=== PATIENT | female | born 1965 | race Caucasian/White ===

== ENCOUNTER → 2018-06-20 | Outpatient (CLI) | payer OTHER ==
[2018-06-20 17:31] LABS: ABSOLUTE BASOPHILS # (AUTO) 0.1 10^3/uL (0.0-0.2); ABSOLUTE EOSINOPHILS # (AUTO) 0.1 10^3/uL (0.0-0.6); ABSOLUTE LYMPHOCYTES (AUTO) 2.6 10^3/uL (0.5-4.7); ABSOLUTE MONOCYTES (AUTO) 0.8 10^3/uL (0.1-1.4); ABSOLUTE NEUT (AUTO) 7.7 10^3/uL (1.7-8.2); BASOPHILS % (AUTO) 1.1 % (0-2); EOSINOPHILS % (AUTO) 1.3 % (0-6); HEMATOCRIT 40.3 % (36.0-47.0); HEMOGLOBIN 13.3 g/dL (12.0-15.5); LYMPHOCYTES % (AUTO) 22.9 % (13-45); MEAN CORPUSCULAR HEMOGLOBIN 29.2 pg (27.0-33.4); MEAN CORPUSCULAR HGB CONC 32.9 g/dL (32.0-36.0); MEAN CORPUSCULAR VOLUME 89 fl (80-97); MONOCYTES % (AUTO) 7.1 % (3-13); PLATELET COUNT 263 10^3/uL (150-450); RED BLOOD COUNT 4.54 10^6/uL (3.72-5.28); RED CELL DISTRIBUTION WIDTH 13.3 % (11.5-14.0); SEGMENTED NEUTROPHILS % (AUTO) 67.6 % (42-78); TOTAL CELLS COUNTED % (AUTO) 100 %; WHITE BLOOD COUNT 11.4 10^3/uL (4.0-10.5)
[2018-06-20 18:02] LABS: ALANINE AMINOTRANSFERASE 30 U/L (9-52); ALBUMIN 3.9 g/dL (3.5-5.0); ALKALINE PHOSPHATASE 90 U/L (38-126); ANION GAP 11 (5-19); ASPARTATE AMINO TRANSFERASE 21 U/L (14-36); BILIRUBIN,DIRECT 0.3 mg/dL (0.0-0.4); BILIRUBIN,TOTAL 0.3 mg/dL (0.2-1.3); BLOOD UREA NITROGEN 13 mg/dL (7-20); CALCIUM 9.4 mg/dL (8.4-10.2); CARBON DIOXIDE 28 mmol/L (22-30); CHLORIDE 105 mmol/L (98-107); GLUCOSE 100 mg/dL (75-110); SODIUM 143.8 mmol/L (137-145); TOTAL PROTEIN 7.1 g/dL (6.3-8.2)
== END ==
LOC: CCC 15:54
DX: Z13.9 Encounter for screening, unspecified (principal)
CPT/HCPCS: 36415; 80053; 83036; 84443; 85025

== ENCOUNTER 2018-10-08 07:38 | Emergency (ER) | payer MEDICAID, OTHER ==
[2018-10-08] MEDS ORDERED: IPRATROPIUM/ALBUTEROL 0.5-2.5 MG/3 ML AMPUL NEB ONE (08:19)
[2018-10-08] MEDS ORDERED: ALBUTEROL SULFATE 0.083% NEB 2.5 MG/3 ML AMPUL NEB ONE (08:19)
[2018-10-08] MEDS ORDERED: PREDNISONE 20 MG TABLET PO ONE (08:19)
--- NOTE | 2018-10-08 08:22 | ER Document Report ---
ED General - General Chief Complaint: Productive Cough Stated Complaint: COUGH, CONGESTION Time Seen by Provider: 10/08/18 08:19 TRAVEL OUTSIDE OF THE [place] IN LAST 30 DAYS: No - HPI Notes: Patient is a 53-year-old female that presents to the emergency department for chief complaint of shortness of breath. Patient has a history of COPD. She reports having increased COPD exacerbation over the last few days. She is having a cough with no sputum production. She denies fevers, chills, palpitations and chest pain. She states she feels like her lungs are tight and she is only getting temporary improvement with her home albuterol. She states when this happens she usually gets significant relief from prednisone. She is not currently on any steroid treatments. She used her albuterol inhaler multiple times today. Past Medical History: COPD Past Surgical History: Right chest wall lipoma removal Social History: Occasional tobacco. Occasional alcohol. Denies drug use. Family History: Reviewed and noncontributory for presenting illness Allergies: Reviewed, see documented allergy list. REVIEW OF SYSTEMS: CONSTITUTIONAL : No fever No chills No diaphoresis No recent illness EENT: No vision changes No congestion No sore throat CARDIOVASCULAR: No chest pain No palpitations RESPIRATORY: shortness of breath cough difficulty breathing GASTROINTESTINAL: No abdominal pain No nausea No vomiting No diarrhea GENITOURINARY: No dysuria No hematuria No difficulty urinating MUSCULOSKELETAL: No back pain No leg pain No arm pain SKIN: No rashes No lesions LYMPHATIC: No swollen, enlarged glands. NEUROLOGICAL: No lightheadedness No headache No weakness No paresthesias PSYCHIATRIC: No anxiety No depression PHYSICAL EXAMINATION: Vital signs reviewed, nursing noted reviewed. GENERAL: Well-appearing, well-nourished and in no acute distress. HEAD: Atraumatic, normocephalic. EYES: Eyes appear normal, extraocular movements intact, sclera anicteric, conjunctiva are normal. ENT: nares patent, oropharynx clear without exudates. Moist mucous membranes. NECK: Normal range of motion, supple without lymphadenopathy LUNGS: No accessory muscle use. No respiratory distress. Mild diffuse wheezing. Speaking in full sentences. HEART: Regular rate and rhythm without murmurs ABDOMEN: Soft, nontender, normoactive bowel sounds. No rebound, guarding, or rigidity. No masses appreciated. EXTREMITIES: Nontender, good range of motion, no pitting or edema. NEUROLOGICAL: No focal neurological deficits. Moves all extremities spontaneously Motor and sensory grossly intact on exam. PSYCH: Normal mood, normal affect. SKIN: Warm, Dry, normal turgor, no rashes or lesions noted on exposed skin - Related Data Allergies/Adverse Reactions: Penicillins Allergy (Verified 10/08/18 07:44) Past Medical History - Social History Smoking Status: Current Every Day Smoker Family History: Reviewed & Not Pertinent Physical Exam - Vital signs Vitals: Temp Pulse Resp BP Pulse Ox 97.4 F 83 20 145/71 H 95 10/08/18 07:42 10/08/18 07:42 10/08/18 07:42 10/08/18 07:42 10/08/18 07:42 Course - Re-evaluation Re-evalutation: 10/08/18 08:21 Vitals reviewed. Nursing notes reviewed. Patient in no acute distress and breathing easily on room air. Her oxygen is 95%. She was given prednisone, DuoNeb and albuterol for her COPD exacerbation. 10/08/18 08:57 Patient did have symptomatic relief with breathing treatments. Chest x-ray shows no underlying pneumonia. She is still oxygenating well on room air and is currently at 95%. Patient will be started on steroids at home. She was encouraged to use albuterol inhaler every 4 hours for her COPD exacerbation. She will return to the emergency room for any new or worsening symptoms. Discharged home in stable condition. Chest X-Ray 10/08/18 08:19 IMPRESSION: Bilateral pleural thickening. No acute disease. - Vital Signs Vital signs: Temp Pulse Resp BP Pulse Ox 97.4 F 83 20 145/71 H 95 10/08/18 07:42 10/08/18 07:42 10/08/18 07:42 10/08/18 07:42 10/08/18 07:42 - EKG Interpretation by Me Additional EKG results interpreted by me: 10/08/18 08:33 Inhibited by myself Normal sinus rhythm, rate 81, normal axis, no ectopy, no ST elevation Discharge - Discharge Clinical Impression: COPD exacerbation Condition: Stable Disposition: HOME, SELF-CARE Instructions: Chronic Obstructive Lung Disease ([facility]) Additional Instructions: Please return to the emergency department if you have any worsening, or concern of your symptoms. Please return to the emergency department if you develop chest pain, difficulty breathing, severe abdominal pain, or ongoing vomiting. Please follow-up with your primary care physician in 2-3 days and any other recommended physicians. If prescribed, take all medications as directed. If you have any questions or concerns do not hesitate to return the emergency department for evaluation. Begin taking the prednisone prescription tomorrow, you were already given your daily dose in the emergency room for today. Use your albuterol inhaler 2 puffs every 4 hours for the next 1-2 days and then decrease to 2 puffs every 4 hours as needed. Prescriptions: Benzonatate [Tessalon Perles 100 mg Capsule] 100 mg PO Q8HP PRN #40 capsule PRN Reason: Cough Albuterol Sulfate [Ventolin Hfa 8 gm Mdi (1 Mdi/ER Disp)] 2 puff IH Q4 PRN #2 inhaler PRN Reason: wheezing Inhaler, Assist Devices [Space Chamber Plus] 1 each MC DAILY #1 spacer Prednisone [Deltasone 20 mg Tablet] 2 tab PO DAILY 5 Days tablet Referrals: [facility] [Primary Care Provider] - Follow up in 3-5 days
--- NOTE | 2018-10-08 08:48 | RADIOLOGY REPORT (SQ) ---
EXAM DESCRIPTION: CHEST SINGLE VIEW COMPLETED DATE/TIME: 10/08/2018 8:27 am REASON FOR STUDY: cough COMPARISON: None. EXAM PARAMETERS: NUMBER OF VIEWS: One view. TECHNIQUE: Single frontal radiographic view of the chest acquired. RADIATION DOSE: NA LIMITATIONS: None. FINDINGS: LUNGS AND PLEURA: No acute infiltrates or effusions. MEDIASTINUM AND HILAR STRUCTURES: No masses. Contour normal. HEART AND VASCULAR STRUCTURES: Normal heart and pulmonary vasculature. Bilateral pleural thickening. BONES: No acute findings. HARDWARE: None in the chest. OTHER: Chest leads in place. IMPRESSION: Bilateral pleural thickening. No acute disease. TECHNICAL DOCUMENTATION: JOB ID: [id number] [employer]- All Rights Reserved Reading location - IP/workstation name: [email or web address]
[2018-10-08 09:31] VITALS: BP 158/68
--- NOTE | 2018-10-08 12:45 | EKG REPORT ---
SEVERITY:- NORMAL ECG - SINUS RHYTHM : Confirmed by: Delbert Tirado MD 08-Oct-2018 12:45:27
== END 2018-10-08 09:31 | disposition home or self-care (01) ==
LOC: ER 07:38
DX: J44.1 Chronic obstructive pulmonary disease with (acute) exacerbation (principal); R05 Cough; R06.02 Shortness of breath; F17.200 Nicotine dependence, unspecified, uncomplicated
CPT/HCPCS: 93005; 94640; 99284; 71045; 93010; J7512; J7620

== ENCOUNTER 2018-10-10 14:00 | Emergency (ER) | payer SELFPAY ==
[2018-10-10] MEDS ORDERED: METHYLPREDNISOLONE INJ 125 MG/2 ML SDV IM ONE (15:05)
[2018-10-10] MEDS ORDERED: IPRATROPIUM/ALBUTEROL 0.5-2.5 MG/3 ML AMPUL NEB ONE (15:06)
[2018-10-10] MEDS ORDERED: ALBUTEROL SULFATE 0.083% NEB 2.5 MG/3 ML AMPUL NEB ONE (15:06)
--- NOTE | 2018-10-10 15:13 | ER Document Report ---
ED Respiratory Problem - General Chief Complaint: Breathing Difficulty Stated Complaint: DIFFICULTY BREATHING Time Seen by Provider: 10/10/18 14:49 Mode of Arrival: Ambulatory Information source: Patient Notes: 53 year old female presents to ed for shortness of breath cough wheezing getting worse. She states she got sick on Monday she came to the ED on Monday and she is not getting any better in fact she is getting worse. Patient states she has an albuterol inhaler and a albuterol nebulizer at home but that she did not get any steroids but and she is not getting any better because she needs steroids. Patient thinks she thinks she has pneumonia and would like a chest x- ray. She states she frequently ends up in the hospital with respiratory failure. Alert oriented respiration regular and unlabored speaking with clear voice in full sentences. TRAVEL OUTSIDE OF THE [place] IN LAST 30 DAYS: No - HPI Patient complains to provider of: COPD, Cough, Short of breath Onset: - Monday Duration: Intermittent episodes Initiating Event: URI Quality of pain: Achy Severity: Mild Pain Level: 2 Context: Smoker Short of Breath: Moderate Chest pain/discomfort: Tightness Cough: Productive Sputum amount: Small Sputum color: Green At home treatment: Bronchodilators, Oral steroids Associated symptoms: Congestion, Cough, PND, Runny nose, Sinus pain/pressure, Short of breath Similar symptoms previously: Yes Recently seen / treated by doctor: Yes - Related Data Allergies/Adverse Reactions: Penicillins Allergy (Verified 10/10/18 14:56) Past Medical History - General Information source: Patient - Social History Smoking Status: Current Some Day Smoker Cigarette use (# per day): Yes - 4-5 Smoking Education Provided: Yes - 4 min Frequency of alcohol use: Occasional Drug Abuse: None Lives with: Family Family History: Reviewed & Not Pertinent Patient has suicidal ideation: No Patient has homicidal ideation: No - Past Medical History Cardiac Medical History: Reports: None Pulmonary Medical History: Reports: Hx Asthma, Hx COPD EENT Medical History: Reports: None Neurological Medical History: Reports: None Endocrine Medical History: Reports: None Renal/ Medical History: Reports: None Malignancy Medical History: Reports: None GI Medical History: Reports: None Musculoskeletal Medical History: Reports None Skin Medical History: Reports None Psychiatric Medical History: Reports: None Traumatic Medical History: Reports: None Infectious Medical History: Reports: None Past Surgical History: Reports: Hx Hysterectomy Review of Systems - Review of Systems Notes: REVIEW OF SYSTEMS: CONSTITUTIONAL : Denies fever, chills, or sweats. Denies recent illness. EENT: Denies eye, ear, throat, or mouth pain or symptoms. Denies nasal or sinus congestion or discharge. Denies throat, tongue, or mouth swelling or difficulty swallowing. CARDIOVASCULAR: Denies chest pain. Denies palpitations or racing or irregular heart beat. Denies ankle edema. RESPIRATORY: Denies cough, cold, or chest congestion. Denies shortness of breath, difficulty breathing, or wheezing. GASTROINTESTINAL: Denies abdominal pain or distention. Denies nausea, vomiting , or diarrhea. Denies blood in vomitus, stools, or per rectum. Denies black, tarry stools. Denies constipation. GENITOURINARY: Denies difficulty urinating, painful urination, burning, frequency, blood in urine, or discharge. FEMALE GENITOURINARY: Denies vaginal bleeding, heavy or abnormal periods, irregular periods. Denies vaginal discharge or odor. MUSCULOSKELETAL: Denies back or neck pain or stiffness. Denies joint pain or swelling. SKIN: Denies rash, lesions or sores. HEMATOLOGIC : Denies easy bruising or bleeding. LYMPHATIC: Denies swollen, enlarged glands. NEUROLOGICAL: Denies confusion or altered mental status. Denies passing out or loss of consciousness. Denies dizziness or lightheadedness. Denies headache. Denies weakness or paralysis or loss of use of either side. Denies problems with gait or speech. Denies sensory loss, numbness, or tingling. Denies seizures. PHYSICAL EXAMINATION: GENERAL: Well-appearing, well-nourished and in no acute distress. HEAD: Atraumatic, normocephalic. EYES: Pupils equal round and reactive to light, extraocular movements intact, conjunctiva are normal. ENT: Pale boggy nasal turbinates, postnasal drip without exudates. Moist mucous membranes. NECK: Normal range of motion, supple without lymphadenopathy LUNGS: Patient had bilateral wheezes but no rales or rhonchi. Respirations regular and unlabored. Patient had good air exchange with stable vital signs HEART: Regular rate and rhythm without murmurs ABDOMEN: Soft, nontender, nondistended abdomen. No guarding, no rebound. No masses appreciated. Female : deferred Musculoskeletal: Normal range of motion, no pitting or edema. No cyanosis. NEUROLOGICAL: Cranial nerves grossly intact. Normal speech, normal gait. Normal sensory, motor exams PSYCH: Normal mood, normal affect. SKIN: Warm, Dry, normal turgor, no rashes or lesions noted. PSYCHIATRIC: Denies anxiety or stress. Denies depression, suicidal ideation, or homicidal ideation. ALL OTHER SYSTEMS REVIEWED AND NEGATIVE. Dictation was performed using [employer] voice recognition software Physical Exam - Vital signs Vitals: Temp Pulse Resp BP Pulse Ox 97.6 F 81 16 152/77 H 92 10/10/18 14:25 10/10/18 14:25 10/10/18 14:25 10/10/18 14:25 10/10/18 14:25 Course - Re-evaluation Re-evalutation: 10/11/18 00:07 Patient is assessment consistent with an upper respiratory infection with bronchospasms. She was treated with steroids and albuterol nebulizer with a DuoNeb. She was discharged home to follow-up with her primary doctor. - Vital Signs Vital signs: Temp Pulse Resp BP Pulse Ox 97.5 F 90 18 144/72 H 93 10/10/18 16:28 10/10/18 16:28 10/10/18 16:28 10/10/18 16:28 10/10/18 16:28 - Diagnostic Test Radiology reviewed: Image reviewed, Reports reviewed Discharge - Discharge Clinical Impression: COPD exacerbation Condition: Stable Disposition: HOME, SELF-CARE Instructions: Family Physicians / Practices Additional Instructions: Chronic Obstructive Lung Disease You have chronic obstructive lung disease (COPD). The symptoms come from emphysema (damage to small airways, with trapping of air in large sacks in the lung) and chronic bronchitis (repeated infection and damage to larger airways). The cause is almost always cigarette smoking, although dust exposure, asthma, and infections contribute. You should avoid fumes, dust, and smoke (especially tobacco smoke). Your condition will flare from time to time. There is no cure, but the symptoms can be treated. Bronchodilators (asthma medicine) are often helpful. Antibiotics help when infection is present. When shortness of breath is severe, we may prescribe cortisone medication. If medicine doesn't help enough, we can arrange for you to have an oxygen tank at home. Notify your doctor at once if sputum becomes thick, foul, or bloody, if you develop a fever or chest pain, or if your shortness of breath worsens. STEROID MEDICATION: You have been given an injection of or oral medicine of the cortisone/ steroid class. This medication is used to control inflammation or allergy. Dutch t is usually only given for a short period of time, until the acute process subsides. There are usually no side effects from short-term use of cortisone-like medications. Some persons feel an increased sense of well-being and are not sleepy at bedtime. Long-term use of cortisone medications is best avoided, unless required for a severe condition. If your condition does not remit, or relapses after the course of corticosteroid medication, you should consult your physician. INHALED BRONCHODILATORS: You have received treatment(s) of and/or prescription for an inhaled bronchodilator -- a medication which stimulates the airways in the lung to dilate. This improves the flow of air in asthma, bronchitis, and emphysema. These medicines have some similarity to adrenaline, and can cause similar side effects: shakiness, racing heart, and a sense of nervousness. These side effects decrease with time. Contact your doctor if these side effects are severe. Do not over-use the medicine. Too-frequent use of the inhaler may make it ineffective. Call your doctor if the inhaler is not controlling your symptoms at the prescribed doses. SMOKING: If you smoke, you should stop smoking. The tar and chemicals in cigarette smoke are harmful. Smoking has been shown to cause: emphysema chronic bronchitis lung cancer mouth and throat cancer stomach and pancreas cancer premature aging defects In addition, smoking increases ear and lung infections in children of smokers. USE OF ACETAMINOPHEN (Tylenol): Acetaminophen may be taken for pain relief or fever control. It's much safer than aspirin, offering a wider range of "safe" dosages. It is safe during . Some brand names are Tylenol, Panadol, Datril, Anacin 3, Tempra, and Liquiprin. Acetaminophen can be repeated every four hours. The following are maximum recommended dosages: WEIGHT Dose Drops Elixir Chewable( 80mg) (LBS.) drprs=droppers tsp=teaspoon 6 40 mg 0.4 ml (1/2) 6-11 80 mg 0.8 ml (full) tsp 1 tab 12-16 120 mg 1 1/2 drprs 3/4 tsp 1 1/2 tabs 17-23 160 mg 2 drprs 1 tsp 2 tabs 24-30 240 mg 3 drprs 1 1/2 tsp 3 tabs 30-35 320 mg 2 tsp 4 tabs 36-41 360 mg 2 1/4 tsp 4 1/2 tabs 42-47 400 mg 2 1/2 tsp 5 tabs 48-53 480 mg 3 tsp 6 tabs 54-59 520 mg 3 1/4 tsp 6 1/2 tabs 60-64 560 mg 3 1/2 tsp 7 tabs 65-70 600 mg 3 3/4 tsp 7 1/2 tabs 71-76 640 mg 4 tsp 8 tabs 77-82 720 mg 4 1/2 tsp 9 tabs 83-88 800 mg 5 tsp 10 tabs >89 pounds or adults 650 mg to 900 mg Acetaminophen can be repeated every four hours. Maximum dose not to exceed 4000 mg a day. These maximum recommended dosages are slightly higher than the dosages written on the product container, but these dosages are very safe and below the toxic dosage for acetaminophen. FOLLOW-UP CARE: If you have been referred to a physician for follow-up care, call the physician s office for an appointment as you were instructed or within the next two days. If you experience worsening or a significant change in your symptoms, notify the physician immediately or return to the Emergency Department at any time for re-evaluation. Prescriptions: Prednisone [Deltasone 20 mg Tablet] 1 tab PO DAILY 3 Days tablet Forms: Elevated Blood Pressure, Smoking Cessation Education, Return to Work
--- NOTE | 2018-10-10 15:41 | RADIOLOGY REPORT (SQ) ---
EXAM DESCRIPTION: CHEST 2 VIEWS COMPLETED DATE/TIME: 10/10/2018 3:29 pm REASON FOR STUDY: cough congestion wheezing COMPARISON: AP chest 10/08/2018 EXAM PARAMETERS: NUMBER OF VIEWS: two views TECHNIQUE: Digital Frontal and Lateral radiographic views of the chest acquired. RADIATION DOSE: NA LIMITATIONS: none FINDINGS: LUNGS AND PLEURA: No opacities, masses or pneumothorax. No pleural effusion. MEDIASTINUM AND HILAR STRUCTURES: No masses or contour abnormalities. HEART AND VASCULAR STRUCTURES: Heart normal size. No evidence for failure. BONES: No acute findings. HARDWARE: None in the chest. OTHER: No other significant finding. IMPRESSION: NO ACUTE RADIOGRAPHIC FINDING IN THE CHEST. TECHNICAL DOCUMENTATION: JOB ID: [id number] [email or web address]- All Rights Reserved Reading location - IP/workstation name: [email or web address]
[2018-10-10 16:32] VITALS: BP 144/72
== END 2018-10-10 16:32 | disposition home or self-care (01) ==
LOC: ER 14:00
DX: J44.1 Chronic obstructive pulmonary disease with (acute) exacerbation (principal); R06.02 Shortness of breath; R05 Cough; R06.2 Wheezing; R09.82 Postnasal drip; J34.89 Other specified disorders of nose and nasal sinuses; R09.89 Other specified symptoms and signs involving the circulatory and respiratory systems; F17.210 Nicotine dependence, cigarettes, uncomplicated; Z71.6 Tobacco abuse counseling; Z79.899 Other long term (current) drug therapy; Z88.0 Allergy status to penicillin
CPT/HCPCS: 99406; 94640 ×2; 99285; 96372; 71046; J2930; J7620

== ENCOUNTER 2018-11-10 13:25 | Emergency (ER) | payer OTHER ==
--- NOTE | 2018-11-10 15:21 | ER Document Report ---
ED Medical Screen (RME) - General Chief Complaint: Leg Pain Stated Complaint: LEG PAIN Time Seen by Provider: 11/10/18 15:08 Mode of Arrival: Ambulatory Information source: Patient Notes: 53-year-old female presents to ED for complaint of pain to the left lower extremity. She states that the pain began on Alexandra Nathalia. She states she was moving things around and she had some pain in the front of her leg. She states that started to get better and then she started having pain in the posterior thigh back of her leg and calf. She states she has multiple family members have had blood clots and she is concerned that she has a blood clot. Patient does not herself have a history of blood clots but she has smoked until a month ago. Back of her leg is very tender to palpation. She does have varicose veins to the back of her leg. Patient is alert oriented respirations regular and unl abored speaking in full sentences. I have greeted and performed a rapid initial assessment of this patient. A comprehensive ED assessment and evaluation of the patient, analysis of test results and completion of medical decision making process will be conducted by an additional ED providers. TRAVEL OUTSIDE OF THE [place] IN LAST 30 DAYS: No - Related Data Allergies/Adverse Reactions: Penicillins Allergy (Verified 10/10/18 14:56) Past Medical History Pulmonary Medical History: Reports: Hx Asthma, Hx COPD Renal/ Medical History: Denies: Hx Peritoneal Dialysis Past Surgical History: Reports: Hx Hysterectomy Physical Exam - Vital signs Vitals: Temp Pulse Resp BP Pulse Ox 98.6 F 81 20 146/69 H 92 11/10/18 14:10 11/10/18 14:10 11/10/18 14:10 11/10/18 14:10 11/10/18 14:10 Course - Vital Signs Vital signs: Temp Pulse Resp BP Pulse Ox 97.8 F 88 16 145/76 H 96 11/10/18 20:53 11/10/18 20:53 11/10/18 20:53 11/10/18 20:53 11/10/18 20:53 - Laboratory Result Diagrams: 11/10/18 19:30 11/10/18 19:30 Laboratory results interpreted by me: 11/10/18 19:30 WBC 12.0 H Doctor's Discharge - Discharge Clinical Impression: Knee pain, acute, Calf pain Condition: Good Disposition: HOME, SELF-CARE Instructions: Myalagia (Muscle Pain) ([facility]), Osteoarthritis ([facility]) Additional Instructions: Your ultrasound today did not show any evidence of a clot in your leg. Your blood work does not show any evidence of a clot in your lung. If you continue to have calf pain return to the emergency department in 5-7 days for repeat ultrasound. Prescriptions: Ibuprofen [Motrin 600 Mg Tablet] 600 mg PO TID #15 tablet Oxycodone HCl/Acetaminophen [Percocet 5-325 mg Tablet] 1 tab PO Q6H PRN #10 tablet PRN Reason: Referrals: JAKOB EDWARDS MD [COMMUNITY BASED STAFF] - Follow up as needed MARCO A DIAZ MD [ACTIVE STAFF] - Follow up as needed
--- NOTE | 2018-11-10 15:55 | RADIOLOGY REPORT (SQ) ---
EXAM DESCRIPTION: KNEE LEFT 4 VIEW COMPLETED DATE/TIME: 11/10/2018 3:47 pm REASON FOR STUDY: pain and possible injury COMPARISON: None. NUMBER OF VIEWS: Four views. TECHNIQUE: AP, lateral, and both oblique radiographic images acquired of the left knee. LIMITATIONS: None. FINDINGS: MINERALIZATION: Normal. BONES: No acute fracture or dislocation. No worrisome bone lesions. JOINT: No effusion. SOFT TISSUES: No soft tissue swelling. No radio-opaque foreign body. OTHER: No other significant finding. IMPRESSION: NEGATIVE STUDY OF THE LEFT KNEE. NO RADIOGRAPHIC EVIDENCE OF ACUTE INJURY. TECHNICAL DOCUMENTATION: JOB ID: [id number] [employer]- All Rights Reserved Reading location - IP/workstation name: [email or web address]
--- NOTE | 2018-11-10 16:24 | RADIOLOGY REPORT (SQ) ---
EXAM DESCRIPTION: VENOUS UNILATERAL LOWER COMPLETED DATE/TIME: 11/10/2018 4:15 pm REASON FOR STUDY: pain in back of left leg COMPARISON: None. TECHNIQUE: Dynamic and static green scale and color images acquired of the left leg venous system. Se lected spectral images acquired with additional compression and augmentation maneuvers. The contralat eral common femoral vein and saphenofemoral junction were also imaged. Images stored on PACS. LIMITATIONS: None. FINDINGS: COMMON FEMORAL: Normal phasicity, compression and augmentation. No visualized echogenic ma terial on green scale. No defects on color images. FEMORAL: Normal compression and augmentation. No visualized echogenic material on green scale. No defe cts on color images. POPLITEAL: Normal compression, augmentation. No visualized echogenic material on green scale. No defec ts on color images. CALF VESSELS: Normal compression, augmentation. No visualized echogenic material on green scale. No de fects on color images. GSV and SSV: Normal compression, augmentation. No visualized echogenic material on green scale. No def ects on color images. ANY DEEP VENOUS INSUFFICIENCY: Not evaluated. ANY EVIDENCE OF POPLITEAL CYST: No. OTHER: No other significant finding. CONTRALATERAL COMMON FEMORAL VEIN AND SAPHENOFEMORAL JUNCTION: Normal phasicity, compression and augmentation. No visualized echogenic material on green scale. No de fects on color images. IMPRESSION: NO EVIDENCE DVT OR SVT IN THE LEFT LEG. TECHNICAL DOCUMENTATION: JOB ID: [id number] [employer]- All Rights Reserved Reading location - IP/workstation name: [email or web address]
[2018-11-10] MEDS ORDERED: IBUPROFEN 800 MG TABLET PO ONE (16:31)
--- NOTE | 2018-11-10 17:12 | ER Document Report ---
ED General - General Mode of Arrival: Ambulatory Information source: Patient TRAVEL OUTSIDE OF THE [place] IN LAST 30 DAYS: No - HPI Onset: Other - 5 days Onset/Duration: Sudden, Constant Quality of pain: Achy Associated symptoms: None Exacerbated by: Movement, Walking Relieved by: Denies Similar symptoms previously: No Recently seen / treated by doctor: No <GOPI VAUGHN - Last Filed: 11/10/18 17:35> <CHERIE NOEL - Last Filed: 11/10/18 23:30> - General Chief Complaint: Leg Pain Stated Complaint: LEG PAIN Time Seen by Provider: 11/10/18 15:08 Notes: 53-year-old female presents the emergency department with complaints of left lower extremity pain. Patient states that this began on and has been constant since then. Patient states that she did hit the medial aspect of the knee on 11/05 and thought that her knee might of been bruised. She was having pain when she walked due to flexion/extension of the knee. Patient states that over the last couple of days the pain has been moving into the posterior leg and calf. She tried taking an old muscle relaxer without any relief of symptoms. Pain is worse with movement. No alleviating factors. She states that her family members have had DVTs in the past. Patient is concerned that she does have a DVT. Denies recent travel, recent surgery, history of DVT in herself, history of hormone use, history of malignancy. Patient denies any difficulty breathing or chest pain. (GOPI VAUGHN) - Related Data Allergies/Adverse Reactions: Penicillins Allergy (Verified 10/10/18 14:56) Past Medical History - General Information source: Patient - Social History Smoking Status: Never Smoker Chew tobacco use (# tins/day): No Frequency of alcohol use: Social Drug Abuse: None Family History: Reviewed & Not Pertinent Patient has suicidal ideation: No Patient has homicidal ideation: No Pulmonary Medical History: Reports: Hx Asthma, Hx COPD Renal/ Medical History: Denies: Hx Peritoneal Dialysis Past Surgical History: Reports: Hx Hysterectomy <GOPI VAUGHN - Last Filed: 11/10/18 17:35> Review of Systems - Review of Systems Constitutional: No symptoms reported EENT: No symptoms reported Cardiovascular: No symptoms reported Respiratory: No symptoms reported Gastrointestinal: No symptoms reported Genitourinary: No symptoms reported Musculoskeletal: Joint pain, Muscle pain Skin: No symptoms reported Hematologic/Lymphatic: No symptoms reported Neurological/Psychological: No symptoms reported -: Yes All other systems reviewed and negative <GOPI VAUGHN - Last Filed: 11/10/18 17:35> Physical Exam <GOPI VAUGHN - Last Filed: 11/10/18 17:35> - Vital signs Vitals: Temp Pulse Resp BP Pulse Ox 98.6 F 81 20 146/69 H 92 11/10/18 14:10 11/10/18 14:10 11/10/18 14:10 11/10/18 14:10 11/10/18 14:10 - Notes Notes: PHYSICAL EXAMINATION: GENERAL: Well-appearing, well-nourished and in no acute distress. HEAD: Atraumatic, normocephalic. EYES: Pupils equal round and reactive to light, extraocular movements intact, conjunctiva are normal. ENT: Nares patent, oropharynx clear without exudates. Moist mucous membranes. NECK: Normal range of motion, supple without lymphadenopathy LUNGS: Breath sounds clear to auscultation bilaterally and equal. No wheezes rales or rhonchi. HEART: Regular rate and rhythm without murmurs ABDOMEN: Soft, nontender, nondistended abdomen. No guarding, no rebound. No masses appreciated. Female : deferred Musculoskeletal: Normal range of motion, no pitting or edema. No cyanosis. 2+ DP/PT pulses. Left calf tenderness to palpation. No tibia/fibula tenderness to palpation. Left medial knee tenderness to palpation. NEUROLOGICAL: Cranial nerves grossly intact. Normal speech, normal gait. Normal sensory, motor exams PSYCH: Normal mood, normal affect. SKIN: Warm, Dry, normal turgor, no rashes or lesions noted. (GOPI VAUGHN) Course <GOPI VAUGHN - Last Filed: 11/10/18 17:35> - Laboratory Result Diagrams: 11/10/18 19:30 11/10/18 19:30 - Diagnostic Test Radiology reviewed: Image reviewed, Reports reviewed <CHERIE NOEL - Last Filed: 11/10/18 23:30> - Re-evaluation Re-evalutation: 11/10/18 17:08 Venous Doppler is negative. X-ray of the knee is negative. Patient has left calf tenderness to palpation. No anterior leg tenderness to palpation. Patient has 2+ dorsalis pedis and posterior tibialis pulses. Normal color to the foot. Able to flex/extend knee in the room. Able to ambulate despite the pain. I will place the knee in an immobilizer as the patient is complaining of pain to the medial aspect of the knee. I will provide follow up with orthopedic surgery and a primary care physician. I told the patient to take [id number] medication as needed for pain, to follow-up with the primary care physician this week, and to return to the emergency department for worsening symptoms. 11/10/18 17:22 Upon reviewing the nursing notes, it was stated the patient has been having shortness of breath intermittently since this happened. I went and reevaluated the patient. She states that she is not currently feeling short of breath but this has happened over the last couple of days. Patient states that she thought it was just her anxiety. A d-dimer and labs were ordered. Patient denies chest pain. 11/10/18 17:35 EKG: Ventricular rate 75, KS interval 140, QRS duration 78, QTc 438, sinus rhythm, no ST segment elevation. (GOPI VAUGHN) 11/10/18 23:28 Patient signed out to me by Dr. Marie with d-dimer pending. D-dimer within normal limits. Patient reevaluated and still complaining of significant calf pain. Ultrasound reviewed and negative for DVT. Kyaw wrap was applied to the calf and knee for comfort. Patient advised to use NSAIDs for pain. Patient advised that if she continues to have pain that she should return in 5-7 days for repeat ultrasound. Patient was discharged home in stable condition with recommendation to follow-up with her primary care physician. 11/10/18 23:28 After speaking with the patient for over 10 minutes patient asked to see me back in the room and stated that her family believes that this is gout. Patient's exam is not consistent with gout! (CHERIE NOEL) - Vital Signs Vital signs: Temp Pulse Resp BP Pulse Ox 97.8 F 88 16 145/76 H 96 11/10/18 20:53 11/10/18 20:53 11/10/18 20:53 11/10/18 20:53 11/10/18 20:53 - Laboratory Laboratory results interpreted by me: 11/10/18 19:30 WBC 12.0 H Discharge <GOPI VAUGHN A - Last Filed: 11/10/18 17:35> <BERTSUNITHA - Last Filed: 11/10/18 23:30> - Discharge Clinical Impression: Knee pain, acute Qualifiers: Laterality: left Qualified Code(s): M25.562 - Pain in left knee Calf pain Qualifiers: Laterality: left Qualified Code(s): M79.662 - Pain in left lower leg Condition: Good Disposition: HOME, SELF-CARE Instructions: Myalagia (Muscle Pain) ([facility]), Osteoarthritis ([facility]) Additional Instructions: Your ultrasound today did not show any evidence of a clot in your leg. Your blood work does not show any evidence of a clot in your lung. If you continue to have calf pain return to the emergency department in 5-7 days for repeat ultrasound. Prescriptions: Ibuprofen [Motrin 600 Mg Tablet] 600 mg PO TID #15 tablet Oxycodone HCl/Acetaminophen [Percocet 5-325 mg Tablet] 1 tab PO Q6H PRN #10 tablet PRN Reason: Forms: Elevated Blood Pressure Referrals: MARCO A DIAZ MD [ACTIVE STAFF] - Follow up as needed JAKOB EDWARDS MD [COMMUNITY BASED STAFF] - Follow up as needed
[2018-11-10 19:48] LABS: ABSOLUTE BASOPHILS # (AUTO) 0.1 10^3/uL (0.0-0.2); ABSOLUTE EOSINOPHILS # (AUTO) 0.3 10^3/uL (0.0-0.6); ABSOLUTE LYMPHOCYTES (AUTO) 2.5 10^3/uL (0.5-4.7); ABSOLUTE NEUT (AUTO) 8.1 10^3/uL (1.7-8.2); BASOPHILS % (AUTO) 1.1 % (0-2); EOSINOPHILS % (AUTO) 2.2 % (0-6); HEMATOCRIT 37.6 % (36.0-47.0); HEMOGLOBIN 12.8 g/dL (12.0-15.5); LYMPHOCYTES % (AUTO) 20.5 % (13-45); MEAN CORPUSCULAR HEMOGLOBIN 29.6 pg (27.0-33.4); MEAN CORPUSCULAR HGB CONC 34.2 g/dL (32.0-36.0); MEAN CORPUSCULAR VOLUME 87 fl (80-97); MONOCYTES % (AUTO) 8.6 % (3-13); PLATELET COUNT 225 10^3/uL (150-450); RED BLOOD COUNT 4.33 10^6/uL (3.72-5.28); RED CELL DISTRIBUTION WIDTH 13.1 % (11.5-14.0); SEGMENTED NEUTROPHILS % (AUTO) 67.6 % (42-78); TOTAL CELLS COUNTED % (AUTO) 100 %
[2018-11-10 20:05] LABS: ALANINE AMINOTRANSFERASE 24 U/L (9-52); ALBUMIN 3.6 g/dL (3.5-5.0); ALKALINE PHOSPHATASE 84 U/L (38-126); ANION GAP 7 (5-19); ASPARTATE AMINO TRANSFERASE 23 U/L (14-36); BILIRUBIN,DIRECT 0.2 mg/dL (0.0-0.4); BILIRUBIN,TOTAL 0.6 mg/dL (0.2-1.3); BLOOD UREA NITROGEN 13 mg/dL (7-20); CALCIUM 9.2 mg/dL (8.4-10.2); CARBON DIOXIDE 29 mmol/L (22-30); CHLORIDE 104 mmol/L (98-107); GLUCOSE 85 mg/dL (75-110); POTASSIUM 4.6 mmol/L (3.6-5.0); SODIUM 140.2 mmol/L (137-145); TOTAL PROTEIN 6.4 g/dL (6.3-8.2)
--- NOTE | 2018-11-10 20:28 | EKG REPORT ---
SEVERITY:- NORMAL ECG - SINUS RHYTHM : Confirmed by: Gwen Dejesus 10-Nov-2018 20:27:36
[2018-11-10 20:54] VITALS: BP 145/76
== END 2018-11-10 20:54 | disposition home or self-care (01) ==
LOC: ER 13:25
DX: M79.662 Pain in left lower leg (principal); M25.562 Pain in left knee; Z79.899 Other long term (current) drug therapy; J44.9 Chronic obstructive pulmonary disease, unspecified
CPT/HCPCS: 93005; 99284; 36415; 85025; 80053; 85379; 93971; 73564; 93010; L1830

== ENCOUNTER 2019-01-16 14:04 | Emergency (ER) | payer OTHER ==
[2019-01-16] MEDS ORDERED: IPRATROPIUM/ALBUTEROL 0.5-2.5 MG/3 ML AMPUL NEB ONE ×2 (16:08→16:16)
--- NOTE | 2019-01-16 16:17 | ER Document Report ---
HPI - HPI Time Seen by Provider: 01/16/19 16:00 Pain Level: 2 Notes: Patient is a 53-year-old female who presents to the emergency department with complaints of productive cough, congestion, fever and chills. Patient reports her symptoms have been going on for approximately 12-14 days. She reports history of COPD, pneumonia and bronchitis. She reports that she is a nonsmoker. - CONSTITUTIONAL Constitutional: REPORTS: Fever - EENT EENT: REPORTS: Sore Throat - NEURO Neurology: REPORTS: Headache - RESPIRATORY Respiratory: REPORTS: Trouble Breathing, Coughing - REPRODUCTIVE Reproductive: DENIES: : Past Medical History - General Information source: Patient - Social History Smoking Status: Never Smoker Chew tobacco use (# tins/day): No Frequency of alcohol use: Occasional Drug Abuse: None Family History: Reviewed & Not Pertinent Patient has suicidal ideation: No Patient has homicidal ideation: No Pulmonary Medical History: Reports: Hx Asthma, Hx COPD Renal/ Medical History: Denies: Hx Peritoneal Dialysis Past Surgical History: Reports: Hx Hysterectomy Vertical Provider Document - CONSTITUTIONAL Notes: PHYSICAL EXAMINATION: GENERAL: Well-appearing, well-nourished and in no acute distress. HEAD: Atraumatic, normocephalic. EYES: Pupils equal round extraocular movements intact, conjunctiva are normal. ENT: Nares patent with clear rhinorrhea. NECK: Normal range of motion LUNGS: No respiratory distress, bilateral expiratory wheezes noted. Mildly increased work of breathing. Musculoskeletal: Normal range of motion NEUROLOGICAL: Normal speech, normal gait. PSYCH: Normal mood, normal affect. SKIN: Warm, Dry, normal turgor, no rashes or lesions noted. - INFECTION CONTROL TRAVEL OUTSIDE OF THE [place] IN LAST 30 DAYS: No Course - Re-evaluation Re-evalutation: Possible infiltrate in the left lower lobe on chest x-ray. Patient's lung sounds improved significantly after breathing treatments here in the emergency department. O2 saturations remained 98-100% after breathing treatments, no tachypnea noted. Patient will be started on doxycycline. - Vital Signs Vital signs: Temp Pulse Resp BP Pulse Ox 97.9 F 99 18 147/79 H 93 01/16/19 15:50 01/16/19 15:50 01/16/19 15:50 01/16/19 15:50 01/16/19 15:50 Discharge - Discharge Clinical Impression: Pneumonia Qualifiers: Pneumonia type: due to unspecified organism Laterality: left Lung location: lower lobe of lung Qualified Code(s): J18.1 - Lobar pneumonia, unspecified organism Condition: Stable Disposition: HOME, SELF-CARE Additional Instructions: PNEUMONIA: Your examination indicates that you have pneumonia. This is an infection of the lung tissue, usually caused by bacteria or a virus. Symptoms include cough, fever, shaking chills, chest pain, shortness of breath, and coughing up bloody sputum. Treatment for bacterial pneumonia includes rest, antibiotics for 10 to 14 days, increasing your clear liquid intake, a cool mist humidifier at your bedside, and fever medication. Often, a repeat chest X-ray is performed in a few weeks--even if you feel better--to ascertain whether the infection has completely resolved and no underlying lung problem is present. You should call the physician if you develop persistent vomiting, high fever that does not respond to fever medication, increasing shortness of breath, confusion, or lethargy. Also, failure to improve within two to three days is an indication for re-examination. ANTIBIOTIC THERAPY: You have been given an antibiotic prescription. It's important that you take all the medication, unless instructed otherwise by your physician. Failure to complete the entire course can result in relapse of your condition. Common side effects of antibiotics include nausea, intestinal cramping, or diarrhea. Women may develop vaginal yeast infections, and babies can get yeast (thrush) in the mouth following the use of antibiotics. Contact your physician if you develop significant side effects from this medication. Allergy to this antibiotic can result in hives, wheezing, faintness, or itching. If symptoms of allergy occur, stop the medication and call the doctor. DOXYCYCLINE: Doxycycline (Vibramycin, Doryx) is an antibiotic of the tetracycline family. This type of drug is useful for infections of the respiratory tract and genital tract, and is sometimes used for intestinal infections. Unlike most tetracyclines, doxycycline can be taken with food. It is longer acting, and (usually) less prone to side effects than regular tetracycline. Tetracycline antibiotics can stain immature teeth and SHOULD NOT BE TAKEN BY CHILDREN, NURSING MOTHERS, OR WOMEN. Tetracyclines can make you more prone to sunburn. Abdominal cramping, nausea, and diarrhea are occasional side effects. Women may experience vaginal yeast infections. Call the doctor at once if you develop hives, itching, shortness of breath, or lightheadedness. USE OF ACETAMINOPHEN (Tylenol): Acetaminophen may be taken for pain relief or fever control. It's much safe r than aspirin, offering a wider range of "safe" dosages. It is safe during . Some brand names are Tylenol, Panadol, Datril, Anacin 3, Tempra, and Liquiprin. Acetaminophen can be repeated every four hours. The following are maximum recommended dosages: WEIGHT Dose Drops Elixir Chewable(80mg) (LBS.) drprs=droppers tsp=teaspoon >89 pounds or adults 650 mg to 900 mg Acetaminophen can be repeated every four hours. Maximum dose not to exceed 4000 mg a day. These maximum recommended dosages are slightly higher than the dosages written on the product container, but these dosages are very safe and below the toxic dosage for acetaminophen. Ibuprofen Ibuprofen is an excellent, safe drug for pain control. In addition, it has potent antiinflammatory effects which are beneficial, especially in the treatment of injuries, arthritis, or tendonitis. It's best to take ibuprofen with food. Persons with ulcer disease or allergy to aspirin should notify their physician of this before taking ibuprofen. Take the medication exactly as prescribed. Don't take additional doses unl ess instructed to do so by your doctor. If you develop wheezing, shortness of breath, hives, faintness, stomach pain, vomiting, or dark black stools, return for re-evaluation at once. FOLLOW-UP CARE: If you have been referred to a physician for follow-up care, call the physicians office for an appointment as you were instructed or within the next two days. If you experience worsening or a significant change in your symptoms, notify the physician immediately or return to the Emergency Department at any time for re-evaluation. Please take antibiotics as prescribed, you were given a first dose here in the emergency department tonight take her next dose tomorrow morning. Use the albuterol inhaler 1-2 puffs every 4 hours as needed for shortness of breath or wheezing. Take the prednisone prescription and have it filled in 3 days if you are still experiencing symptoms. Follow-up with your primary care provider in 3-5 days for follow-up, return to the emergency department sooner with any new or worsening symptoms. Drink plenty of fluids. Prescriptions: Doxycycline Hyclate 100 mg PO BID #14 capsule Prednisone [Deltasone 20 mg Tablet] 3 tab PO DAILY 5 Days #15 tablet
[2019-01-16] MEDS ORDERED: DEXAMETHASONE SOD PHOS INJ 10 MG/1 ML VIAL IM ONE (16:20)
[2019-01-16] MEDS ORDERED: ALBUTEROL SULFATE 0.083% NEB 2.5 MG/3 ML AMPUL NEB ONE (16:20)
--- NOTE | 2019-01-16 17:04 | RADIOLOGY REPORT (SQ) ---
EXAM DESCRIPTION: CHEST 2 VIEWS COMPLETED DATE/TIME: 01/16/2019 4:55 pm REASON FOR STUDY: chest xray COMPARISON: None. EXAM PARAMETERS: NUMBER OF VIEWS: two views TECHNIQUE: Digital Frontal and Lateral radiographic views of the chest acquired. RADIATION DOSE: NA LIMITATIONS: none FINDINGS: LUNGS AND PLEURA: There is some ill-defined opacification behind the heart on the left. T he left hemidiaphragm remains well-defined. MEDIASTINUM AND HILAR STRUCTURES: No masses or contour abnormalities. HEART AND VASCULAR STRUCTURES: Heart normal size. No evidence for failure. BONES: No acute findings. HARDWARE: None in the chest. OTHER: No other significant finding. IMPRESSION: Cannot exclude limited infiltrate in the left lower lobe. TECHNICAL DOCUMENTATION: JOB ID: [id number] [employer]- All Rights Reserved Reading location - IP/workstation name: [email or web address]
[2019-01-16 17:52] VITALS: BP 154/65
[2019-01-16] MEDS ORDERED: ALBUTEROL SULFATE HFA (90 MCG/PUFF) 8 GM MDI (1 MDI/ER DISP) IH ONE (17:58)
[2019-01-16] MEDS ORDERED: DOXYCYCLINE HYCLATE 100 MG TABLET PO ONE (17:59)
== END 2019-01-16 18:08 | disposition home or self-care (01) ==
LOC: ER 14:04
DX: J18.1 Lobar pneumonia, unspecified organism (principal); J44.0 Chronic obstructive pulmonary disease with (acute) lower respiratory infection; R05 Cough; R50.9 Fever, unspecified; R51 Headache
CPT/HCPCS: 94640 ×2; 99283; 96372; 71046; J1100; J3490; J7620

== ENCOUNTER 2019-03-01 13:40 | Emergency (ER) | payer OTHER ==
--- NOTE | 2019-03-01 14:22 | ER Document Report ---
ED Medical Screen (RME) - General Chief Complaint: Shortness Of Breath Stated Complaint: DIFFICULTY BREATHING Time Seen by Provider: 03/01/19 14:17 Mode of Arrival: Ambulatory Information source: Patient Notes: 53-year-old female presented to ED for cough cold congestion and pain between her shoulder blades with no fever. She states she does have a history of COPD and was diagnosed with pneumonia a month ago. She states she feels like she is been getting pneumonia every month since spring time. Patient is alert oriented respirations regular and unlabored. She does have rhonchi in her lungs. CBC chemistry and chest x-ray were ordered. She states she is a former smoker but no longer smokes. I have greeted and performed a rapid initial assessment of this patient. A comprehensive ED assessment and evaluation of the patient, analysis of test results and completion of medical decision making process will be conducted by an additional ED providers. TRAVEL OUTSIDE OF THE [place] IN LAST 30 DAYS: No - Related Data Allergies/Adverse Reactions: Penicillins Allergy (Verified 03/01/19 13:43) Past Medical History - Social History Frequency of alcohol use: Occasional Drug Abuse: None Pulmonary Medical History: Reports: Hx Asthma, Hx COPD Renal/ Medical History: Denies: Hx Peritoneal Dialysis Past Surgical History: Reports: Hx Hysterectomy Physical Exam - Vital signs Vitals: Temp Pulse Resp BP Pulse Ox 98.1 F 87 18 146/61 H 87 L 03/01/19 13:48 03/01/19 13:48 03/01/19 13:48 03/01/19 13:48 03/01/19 13:48 Course - Vital Signs Vital signs: Temp Pulse Resp BP Pulse Ox 98.1 F 87 18 146/61 H 87 L 03/01/19 13:48 03/01/19 13:48 03/01/19 13:48 03/01/19 13:48 03/01/19 13:48
[2019-03-01] MEDS ORDERED: NORMAL SALINE 1000 ML 1,000 ML IV ONE (14:45)
--- NOTE | 2019-03-01 14:46 | RADIOLOGY REPORT (SQ) ---
EXAM DESCRIPTION: CHEST 2 VIEWS COMPLETED DATE/TIME: 03/01/2019 2:37 pm REASON FOR STUDY: pain in lungs feel like her pneumonia, hx copd COMPARISON: 01/16/2019 EXAM PARAMETERS: NUMBER OF VIEWS: two views TECHNIQUE: Digital Frontal and Lateral radiographic views of the chest acquired. RADIATION DOSE: NA LIMITATIONS: none FINDINGS: LUNGS AND PLEURA: No opacities, masses or pneumothorax. No pleural effusion. MEDIASTINUM AND HILAR STRUCTURES: No masses or contour abnormalities. HEART AND VASCULAR STRUCTURES: Heart normal size. No evidence for failure. BONES: No acute findings. HARDWARE: None in the chest. OTHER: No other significant finding. IMPRESSION: No acute abnormality of the lungs. No focal airspace opacity. Previously queried left lower lobe opacity is resolved. TECHNICAL DOCUMENTATION: JOB ID: [id number] [employer]- All Rights Reserved Reading location - IP/workstation name: [email or web address]
[2019-03-01] MEDS ORDERED: IPRATROPIUM/ALBUTEROL 0.5-2.5 MG/3 ML AMPUL NEB ONE (14:50)
[2019-03-01] MEDS ORDERED: MAGNESIUM SULFATE/D5W 1 GM/100 ML RTUPB IV ONE (14:50)
[2019-03-01 15:13] LABS: HEMATOCRIT 39.9 % (36.0-47.0); HEMOGLOBIN 13.5 g/dL (12.0-15.5); MEAN CORPUSCULAR HEMOGLOBIN 29.5 pg (27.0-33.4); MEAN CORPUSCULAR HGB CONC 33.9 g/dL (32.0-36.0); MEAN CORPUSCULAR VOLUME 87 fl (80-97); PLATELET COUNT 252 10^3/uL (150-450); RED BLOOD COUNT 4.58 10^6/uL (3.72-5.28); WHITE BLOOD COUNT 10.5 10^3/uL (4.0-10.5)
[2019-03-01 15:25] LABS: ALANINE AMINOTRANSFERASE 28 U/L (9-52); ALKALINE PHOSPHATASE 98 U/L (38-126); ANION GAP 8 (5-19); ASPARTATE AMINO TRANSFERASE 17 U/L (14-36); BILIRUBIN,DIRECT 0.2 mg/dL (0.0-0.4); BILIRUBIN,TOTAL 0.5 mg/dL (0.2-1.3); BLOOD UREA NITROGEN 13 mg/dL (7-20); CALCIUM 9.7 mg/dL (8.4-10.2); CARBON DIOXIDE 30 mmol/L (22-30); CHLORIDE 104 mmol/L (98-107); GLUCOSE 102 mg/dL (75-110); LIPASE 54.4 U/L (23-300); POTASSIUM 4.5 mmol/L (3.6-5.0); SODIUM 141.9 mmol/L (137-145); TOTAL PROTEIN 7.2 g/dL (6.3-8.2)
[2019-03-01 15:46] LABS: ABSOLUTE LYMPHOCYTES# (MANUAL) 1.8 10^3/uL (0.5-4.7); ABSOLUTE MONOCYTES # (MANUAL) 0.7 10^3/uL (0.1-1.4); ABSOLUTE NEUTROPHILS# (MANUAL) 7.9 10^3/uL (1.7-8.2); BASOPHILS % (MANUAL) 0 % (0-2); EOSINOPHILS % (MANUAL) 1 % (0-6); LYMPHOCYTES % (MANUAL) 17 % (13-45); MONOCYTES % (MANUAL) 7 % (3-13); SEGMENTED NEUTROPHILS % (MAN) 75 % (42-78); TOTAL CELLS COUNTED 100
[2019-03-01 15:47] LABS: PLATELET COMMENT ADEQUATE; RBC MORPHOLOGY COMMENT NORMO-CYTIC/CHROMIC
[2019-03-01] MEDS ORDERED: DEXAMETHASONE SOD PHOS INJ 10 MG/1 ML VIAL IV ONE (17:21)
[2019-03-01 17:35] VITALS: BP 146/89
--- NOTE | 2019-03-01 18:13 | ER Document Report ---
ED General - General Chief Complaint: Shortness Of Breath Stated Complaint: DIFFICULTY BREATHING Time Seen by Provider: 03/01/19 14:17 Mode of Arrival: Ambulatory TRAVEL OUTSIDE OF THE [place] IN LAST 30 DAYS: No - HPI Patient complains to provider of: Shortness of breath Notes: Patient coming in for evaluation of shortness of breath. Patient states feeling short of breath for last week. Patient has recently returned from a trip to [place]. Patient states normally gets a little infection and has had antibiotics if she does not get the symptoms from his breath on exertion. Is also stating some pain throughout her whole body. Patient denies any fevers or chills denies any history of smoking or COPD. Patient otherwise resting healthy upon my evaluation. - Related Data Allergies/Adverse Reactions: Penicillins Allergy (Verified 03/01/19 13:43) Past Medical History - General Information source: Patient - Social History Smoking Status: Former Smoker Frequency of alcohol use: Occasional Drug Abuse: None Family History: Reviewed & Not Pertinent Patient has suicidal ideation: No Patient has homicidal ideation: No Pulmonary Medical History: Reports: Hx Asthma, Hx COPD Renal/ Medical History: Denies: Hx Peritoneal Dialysis Past Surgical History: Reports: Hx Hysterectomy Review of Systems - Review of Systems Constitutional: No symptoms reported EENT: No symptoms reported Cardiovascular: No symptoms reported Respiratory: Short of breath Gastrointestinal: No symptoms reported Genitourinary: No symptoms reported Female Genitourinary: No symptoms reported Musculoskeletal: No symptoms reported Skin: No symptoms reported Hematologic/Lymphatic: No symptoms reported Neurological/Psychological: No symptoms reported -: Yes All other systems reviewed and negative Physical Exam - Vital signs Vitals: Temp Pulse Resp BP Pulse Ox 98.1 F 87 18 146/61 H 87 L 03/01/19 13:48 03/01/19 13:48 03/01/19 13:48 03/01/19 13:48 03/01/19 13:48 Interpretation: Normal - General General appearance: Appears well, Alert - HEENT Head: Normocephalic, Atraumatic Eyes: Normal Pupils: PERRL - Respiratory Respiratory status: No respiratory distress Chest status: Nontender Breath sounds: Normal Chest palpation: Normal - Cardiovascular Rhythm: Regular Heart sounds: Normal auscultation Murmur: No - Abdominal Inspection: Normal Distension: No distension Bowel sounds: Normal Tenderness: Nontender Organomegaly: No organomegaly - Back Back: Normal, Nontender - Extremities General upper extremity: Normal inspection, Nontender, Normal color, Normal ROM, Normal temperature General lower extremity: Normal inspection, Nontender, Normal color, Normal ROM, Normal temperature, Normal weight bearing. No: Koko's sign - Neurological Neuro grossly intact: Yes Cognition: Normal Orientation: AAOx4 [place] Coma Scale Eye Opening: Spontaneous [place] Coma Scale Verbal: Oriented [place] Coma Scale Motor: Obeys Commands Karlo Coma Scale Total: 15 Speech: Normal Motor strength normal: LUE, RUE, LLE, RLE Sensory: Normal - Psychological Associated symptoms: Normal affect, Normal mood - Skin Skin Temperature: Warm Skin Moisture: Dry Skin Color: Normal Course - Re-evaluation Re-evalutation: 03/01/19 18:09 Laboratory studies not show any critical pathology at this time. Chest x-ray does not show any signs of pneumonia. Patient states minimal relief with bronchodilator therapy states normally she gets better after shot of steroids. Decadron was given to the patient d-dimer is negative EKG does not show any acute pathology. Will treat for possible bacterial upper respiratory tract infection with azithromycin. Patient will be discharged home. - Vital Signs Vital signs: Temp Pulse Resp BP Pulse Ox 97.4 F 81 20 146/89 H 93 03/01/19 17:33 03/01/19 17:33 03/01/19 17:33 03/01/19 17:33 03/01/19 17:33 - Laboratory Result Diagrams: 03/01/19 14:46 03/01/19 14:46 Discharge - Discharge Clinical Impression: URI, acute Condition: Good Disposition: HOME, SELF-CARE Instructions: Upper Respiratory Illness ([facility]), Bronchodilators ([facility]), Azithromycin ([facility]) Additional Instructions: Your chest x-ray laboratory studies not showing signs of pneumonia signs of blood clot signs of heart damage we will treat you with an antibiotic called azithromycin. Please use the inhaler as needed for shortness of breath. Please avoid any smoking or people that do smoke. Return to ER if any worsening of your symptoms Prescriptions: Albuterol Sulfate [Proair HFA Inhalation Aerosol 8.5 gm MDI] 2 puff IH Q4H PRN #1 mdi PRN Reason: Azithromycin [Zithromax 250 mg Tablet] 250 mg PO ASDIR PRN #6 tablet PRN Reason: Forms: Return to Work
--- NOTE | 2019-03-01 19:30 | EKG REPORT ---
SEVERITY:- NORMAL ECG - SINUS RHYTHM : Confirmed by: Sury Bailey MD 01-Mar-2019 19:30:24
== END 2019-03-01 18:46 | disposition home or self-care (01) ==
LOC: ER 13:40
DX: J06.9 Acute upper respiratory infection, unspecified (principal); J45.909 Unspecified asthma, uncomplicated; R06.02 Shortness of breath; Z88.0 Allergy status to penicillin; Z87.891 Personal history of nicotine dependence
CPT/HCPCS: 93005; 99284; 96361; 96374; 96375; 36415; 83690; 83735; 85025; 80053; 85379; 71046; 93010; J3475; J7030; J1100; J7620

== ENCOUNTER 2019-04-21 15:22 | Emergency (ER) | payer OTHER ==
[2019-04-21] MEDS ORDERED: METHYLPREDNISOLONE INJ 125 MG/2 ML SDV IV ONE (15:53)
[2019-04-21] MEDS ORDERED: IPRATROPIUM/ALBUTEROL 0.5-2.5 MG/3 ML AMPUL NEB ONE ×2 (15:53→18:22)
--- NOTE | 2019-04-21 15:53 | ER Document Report ---
ED Medical Screen (RME) - General Chief Complaint: Breathing Difficulty Stated Complaint: DIFFICULTY BREATHING Time Seen by Provider: 04/21/19 15:48 TRAVEL OUTSIDE OF THE [place] IN LAST 30 DAYS: No - HPI Notes: 04/21/19 15:51 Patient is a 54-year-old female with history of COPD who presents complaining of acute exacerbation of her COPD with associated productive cough, shortness of breath, and wheezing that began last evening. Patient states that she had a small flareup the other day when someone used bleach around her. Patient states that she had a worsening flareup last night when someone was using a certain chemical/break near her and she breathed it in. Patient states that she has been trying to use her inhaler nebulizer at home with minimal relief. She is still eating and drinking without difficulty. She is urinating normally. Denies HENDERSON, fever, neck pain, URI, CP, n/v, Abd pain, dysuria, back pain, or rash. I have treated and performed a rapid initial assessment of this patient. A comprehensive ED assessment and evaluation of the patient, analysis of test results and completion of medical decision making process will be conducted by additional ED providers. PHYSICAL EXAMINATION: GENERAL: Well-appearing, well-nourished and in no acute distress. A&Ox4. Answers questions appropriately. LUNGS: Breath sounds clear to auscultation bilaterally and equal. No wheezes rales or rhonchi. HEART: Regular rate and rhythm without murmurs, rubs, gallops. Extremities: No cyanosis, clubbing, or edema b/l. No lower extremity asymmetry. Koko negative bilaterally. NEUROLOGICAL: Normal speech, normal gait. PSYCH: Normal mood, normal affect. - Related Data Allergies/Adverse Reactions: Penicillins Allergy (Verified 04/21/19 15:25) Past Medical History Pulmonary Medical History: Reports: Hx Asthma, Hx COPD Renal/ Medical History: Denies: Hx Peritoneal Dialysis Past Surgical History: Reports: Hx Hysterectomy Physical Exam - Vital signs Vitals: Temp Pulse Resp BP Pulse Ox 98.2 F 96 16 145/80 H 90 L 04/21/19 15:38 04/21/19 15:38 04/21/19 15:38 04/21/19 15:38 04/21/19 15:38 Course - Vital Signs Vital signs: Temp Pulse Resp BP Pulse Ox 98.2 F 96 16 145/80 H 90 L 04/21/19 15:38 04/21/19 15:38 04/21/19 15:38 04/21/19 15:38 04/21/19 15:38
[2019-04-21] MEDS ORDERED: MAGNESIUM SULFATE/D5W 1 GM/100 ML RTUPB IV ONE ×2 (15:54)
--- NOTE | 2019-04-21 16:27 | RADIOLOGY REPORT (SQ) ---
EXAM DESCRIPTION: CHEST SINGLE VIEW COMPLETED DATE/TIME: 04/21/2019 4:14 pm REASON FOR STUDY: cough/wheeze COMPARISON: 03/01/2019 TECHNIQUE: Single frontal radiographic view of the chest acquired. NUMBER OF VIEWS: One view. LIMITATIONS: None. FINDINGS: LUNGS AND PLEURA: No pneumothorax. No consolidation or pleural effusion. MEDIASTINUM AND HILAR STRUCTURES: Stable. HEART AND VASCULAR STRUCTURES: Stable. BONES: No acute findings. HARDWARE: None in the chest. OTHER: No other significant finding. IMPRESSION: NO ACUTE FINDINGS. TECHNICAL DOCUMENTATION: JOB ID: [id number] [employer]- All Rights Reserved Reading location - IP/workstation name: [email or web address]
[2019-04-21 16:37] LABS: ABSOLUTE BASOPHILS # (AUTO) 0.1 10^3/uL (0.0-0.2); ABSOLUTE EOSINOPHILS # (AUTO) 0.2 10^3/uL (0.0-0.6); ABSOLUTE LYMPHOCYTES (AUTO) 1.7 10^3/uL (0.5-4.7); ABSOLUTE MONOCYTES (AUTO) 1.2 10^3/uL (0.1-1.4); ABSOLUTE NEUT (AUTO) 13.4 10^3/uL (1.7-8.2); BASOPHILS % (AUTO) 0.7 % (0-2); HEMATOCRIT 38.8 % (36.0-47.0); HEMOGLOBIN 12.8 g/dL (12.0-15.5); LYMPHOCYTES % (AUTO) 10.1 % (13-45); MEAN CORPUSCULAR HEMOGLOBIN 28.9 pg (27.0-33.4); MEAN CORPUSCULAR VOLUME 88 fl (80-97); MONOCYTES % (AUTO) 7.1 % (3-13); PLATELET COUNT 233 10^3/uL (150-450); RED BLOOD COUNT 4.43 10^6/uL (3.72-5.28); RED CELL DISTRIBUTION WIDTH 13.1 % (11.5-14.0); SEGMENTED NEUTROPHILS % (AUTO) 81.1 % (42-78); TOTAL CELLS COUNTED % (AUTO) 100 %; WHITE BLOOD COUNT 16.5 10^3/uL (4.0-10.5)
[2019-04-21 16:38] LABS: VENOUS BLOOD BASE EXCESS 3.6 mmol/L; VENOUS BLOOD HCO3 31.2 mmol/L (20-32); VENOUS BLOOD PCO2 60.2 mmHg (35-63); VENOUS BLOOD PH 7.33 (7.30-7.42)
[2019-04-21 16:55] LABS: ALANINE AMINOTRANSFERASE 27 U/L (9-52); ALBUMIN 4.3 g/dL (3.5-5.0); ALKALINE PHOSPHATASE 88 U/L (38-126); ANION GAP 9 (5-19); ASPARTATE AMINO TRANSFERASE 17 U/L (14-36); BILIRUBIN,DIRECT 0.3 mg/dL (0.0-0.4); BILIRUBIN,TOTAL 0.7 mg/dL (0.2-1.3); BLOOD UREA NITROGEN 10 mg/dL (7-20); CALCIUM 9.6 mg/dL (8.4-10.2); CARBON DIOXIDE 30 mmol/L (22-30); CHLORIDE 102 mmol/L (98-107); GLUCOSE 100 mg/dL (75-110); POTASSIUM 4.8 mmol/L (3.6-5.0); SODIUM 140.7 mmol/L (137-145); TOTAL PROTEIN 7.4 g/dL (6.3-8.2)
--- NOTE | 2019-04-21 18:29 | ER Document Report ---
ED General - General Chief Complaint: Breathing Difficulty Stated Complaint: DIFFICULTY BREATHING Time Seen by Provider: 04/21/19 15:48 Primary Care Provider: [facility] [Primary Care Provider] - Follow up as needed TRAVEL OUTSIDE OF THE [place] IN LAST 30 DAYS: No - HPI Notes: Patient is a 54-year-old female with a history of COPD who presents to the emergency department for evaluation of difficulty breathing. She states that this is been ongoing for several days. It all started when a friend of hers sprayed some bleach. She states it was exacerbated last night around bug spray. She denies any fevers, but she felt "sweaty" this morning. She denies any pain of any sort. She does have a cough which is intermittently productive. She denies any swelling of her legs. No orthopnea. No paroxysmal nocturnal dyspnea. - Related Data Allergies/Adverse Reactions: Penicillins Allergy (Verified 04/21/19 15:25) Past Medical History - Social History Smoking Status: Former Smoker Family History: Reviewed & Not Pertinent Patient has suicidal ideation: No Patient has homicidal ideation: No Pulmonary Medical History: Reports: Hx Asthma, Hx COPD Renal/ Medical History: Denies: Hx Peritoneal Dialysis Past Surgical History: Reports: Hx Hysterectomy Review of Systems - Review of Systems Constitutional: See HPI EENT: No symptoms reported Cardiovascular: No symptoms reported Respiratory: See HPI Gastrointestinal: No symptoms reported Genitourinary: No symptoms reported Musculoskeletal: No symptoms reported Skin: No symptoms reported Neurological/Psychological: No symptoms reported Physical Exam - Vital signs Vitals: Temp Pulse Resp BP Pulse Ox 98.2 F 96 16 145/80 H 90 L 04/21/19 15:38 04/21/19 15:38 04/21/19 15:38 04/21/19 15:38 04/21/19 15:38 - Notes Notes: Vital signs reviewed, please refer to chart. Head is normocephalic, atraumatic. Pupils equal round, reactive to light. Neck is supple without meningismus. Heart is regular rate and rhythm. Lungs reveal mildly diminished breath sounds with occasional expiratory wheeze. No tachypnea, no accessory muscle use. Abdomen is soft, nontender, normoactive bowel sounds throughout. Extremities without cyanosis, clubbing. Posterior calves are nontender. Peripheral pulses are equal. Skin is warm and dry. Patient is awake, alert, neurological exam is nonfocal. Course - Re-evaluation Re-evalutation: 04/21/19 18:31 Patient presents to the emergency department for evaluation. She has a history of COPD. On arrival she is wheezing. She is given magnesium, DuoNeb through triage. Laboratory investigations were obtained. She does have a mild leukocytosis, but I suspect this is reactive. Chest x-ray fails to reveal any acute process. Patient is feeling significantly improved after treatment here. She does have a nebulizer at home. She also has inhalers. [facility]. I will have him send her home with steroids and antibiotics as this is been shown to decrease morbidity. Given her first dose of Zithromax here. She is to follow-up with primary care, return to the ED with worsening or new concerning symptoms of any sort. - Vital Signs Vital signs: Temp Pulse Resp BP Pulse Ox 98.2 F 96 16 145/80 H 90 L 04/21/19 15:38 04/21/19 15:38 04/21/19 15:38 04/21/19 15:38 04/21/19 15:38 - Laboratory Result Diagrams: 04/21/19 16:19 04/21/19 16:19 Laboratory results interpreted by me: 04/21/19 16:19 WBC 16.5 H Seg Neutrophils % 81.1 H Lymphocytes % 10.1 L Absolute Neutrophils 13.4 H - Diagnostic Test Radiology reviewed: Reports reviewed Radiology results interpreted by me: 04/21/19 18:30 Chest X-Ray 04/21/19 15:53 IMPRESSION: NO ACUTE FINDINGS. Discharge - Discharge Clinical Impression: Acute exacerbation of chronic obstructive pulmonary disease (COPD) Condition: Stable Disposition: HOME, SELF-CARE Instructions: Chronic Obstructive Lung Disease ([facility]) Additional Instructions: Take all of the antibiotics and steroids as prescribed, starting tomorrow. Use your albuterol inhaler and nebulizers at home as directed. Follow-up with your primary care provider this week. Return to the emergency department with worsening or new concerning symptoms of any sort. [facility]errals: [facility] [Primary Care Provider] - Follow up as needed
[2019-04-21] MEDS ORDERED: AZITHROMYCIN 250 MG TABLET PO ONE (18:32)
[2019-04-21 18:57] VITALS: BP 151/80
== END 2019-04-21 19:00 | disposition home or self-care (01) ==
LOC: ER 15:22
DX: J44.1 Chronic obstructive pulmonary disease with (acute) exacerbation (principal); Z77.098 Contact with and (suspected) exposure to other hazardous, chiefly nonmedicinal, chemicals; Z87.891 Personal history of nicotine dependence; Z88.0 Allergy status to penicillin
CPT/HCPCS: 94640; 99285; 96375; 96365; 36415; 85025; 80053; 82803; 71045; J2930; J3475; J7620

== ENCOUNTER 2019-09-11 10:25 | Emergency (ER) | payer OTHER ==
[2019-09-11] MEDS ORDERED: ASPIRIN 81 MG TABLET, CHEWABLE PO ONE (11:07)
--- NOTE | 2019-09-11 11:08 | ER Document Report ---
ED Medical Screen (RME) - General Chief Complaint: Chest Pain Stated Complaint: CHEST PAIN Time Seen by Provider: 09/11/19 11:03 Primary Care Provider: ARIA CORONA [Primary Care Provider] - Follow up as needed Mode of Arrival: Ambulatory Information source: Patient Notes: 54-year-old female with history of asthma presents emergency department with complaints of left-sided chest pain pain between the shoulder blades and left arm pain. Reports she had episode on Monday went away. She was on her way to this appointment with her provider when she had episode prior to arrival. Reports she does feel nauseated but complains of night sweats. Reports pain hurts more when she takes a deep breath and she is coughing up some green sputum. No history of ND. EKG sinus rhythm no ST elevation I have greeted and performed a rapid initial assessment of this patient. A comprehensive ED assessment and evaluation of the patient, analysis of test resu lts and completion of the medical decision making process will be conducted by additional ED providers. Dictation of this chart was performed using voice recognition software; therefore, there may be some unintended grammatical errors. TRAVEL OUTSIDE OF THE [place] IN LAST 30 DAYS: No - Related Data Allergies/Adverse Reactions: Penicillins Allergy (Verified 04/21/19 15:25) Past Medical History Pulmonary Medical History: Reports: Hx Asthma, Hx COPD Renal/ Medical History: Denies: Hx Peritoneal Dialysis Past Surgical History: Reports: Hx Hysterectomy Doctor's Discharge - Discharge Referrals: ARIA CORONA [Primary Care Provider] - Follow up as needed
[2019-09-11 11:26] LABS: ABSOLUTE BASOPHILS # (AUTO) 0.1 10^3/uL (0.0-0.2); ABSOLUTE EOSINOPHILS # (AUTO) 0.2 10^3/uL (0.0-0.6); ABSOLUTE LYMPHOCYTES (AUTO) 2.1 10^3/uL (0.5-4.7); ABSOLUTE MONOCYTES (AUTO) 0.8 10^3/uL (0.1-1.4); ABSOLUTE NEUT (AUTO) 9.6 10^3/uL (1.7-8.2); BASOPHILS % (AUTO) 0.5 % (0-2); EOSINOPHILS % (AUTO) 1.8 % (0-6); HEMATOCRIT 39.4 % (36.0-47.0); HEMOGLOBIN 13.2 g/dL (12.0-15.5); LYMPHOCYTES % (AUTO) 16.6 % (13-45); MEAN CORPUSCULAR HEMOGLOBIN 29.5 pg (27.0-33.4); MEAN CORPUSCULAR HGB CONC 33.6 g/dL (32.0-36.0); MEAN CORPUSCULAR VOLUME 88 fl (80-97); MONOCYTES % (AUTO) 6.1 % (3-13); PLATELET COUNT 255 10^3/uL (150-450); RED BLOOD COUNT 4.49 10^6/uL (3.72-5.28); RED CELL DISTRIBUTION WIDTH 13.2 % (11.5-14.0); TOTAL CELLS COUNTED % (AUTO) 100 %; WHITE BLOOD COUNT 12.7 10^3/uL (4.0-10.5)
[2019-09-11 11:50] LABS: ALKALINE PHOSPHATASE 97 U/L (38-126); ANION GAP 6 (5-19); ASPARTATE AMINO TRANSFERASE 16 U/L (14-36); BILIRUBIN,DIRECT 0.1 mg/dL (0.0-0.4); BILIRUBIN,TOTAL 0.5 mg/dL (0.2-1.3); BLOOD UREA NITROGEN 12 mg/dL (7-20); CALCIUM 9.6 mg/dL (8.4-10.2); CARBON DIOXIDE 34 mmol/L (22-30); CHLORIDE 100 mmol/L (98-107); CREATINE KINASE 35 U/L (30-135); GLUCOSE 114 mg/dL (75-110); POTASSIUM 5.2 mmol/L (3.6-5.0)
[2019-09-11 12:02] LABS: CREATINE KINASE MB 0.77 ng/mL (<4.55)
[2019-09-11 12:06] LABS: TROPONIN I < 0.012 ng/mL
--- NOTE | 2019-09-11 12:13 | RADIOLOGY REPORT (SQ) ---
EXAM DESCRIPTION: CHEST 2 VIEWS COMPLETED DATE/TIME: 09/11/2019 11:45 am REASON FOR STUDY: cp COMPARISON: 06/14/2019 EXAM PARAMETERS: NUMBER OF VIEWS: two views TECHNIQUE: Digital Frontal and Lateral radiographic views of the chest acquired. RADIATION DOSE: NA LIMITATIONS: none FINDINGS: LUNGS AND PLEURA: New linear right basilar opacity. No pleural effusion. No pneumothorax . MEDIASTINUM AND HILAR STRUCTURES: No masses or contour abnormalities. HEART AND VASCULAR STRUCTURES: Heart normal size. No evidence for failure. BONES: No acute findings. HARDWARE: None in the chest. OTHER: No other significant finding. IMPRESSION: New linear right basilar opacity, likely atelectasis. TECHNICAL DOCUMENTATION: JOB ID: [id number] [employer]- All Rights Reserved Reading location - IP/workstation name: [email or web address]
--- NOTE | 2019-09-11 12:41 | EKG REPORT ---
SEVERITY:- BORDERLINE ECG - SINUS RHYTHM BORDERLINE T ABNORMALITIES, ANT-LAT LEADS : Confirmed by: Delbert Tirado MD 11-Sep-2019 12:41:05
--- NOTE | 2019-09-11 14:15 | ER Document Report ---
ED General - General Chief Complaint: Chest Pain Stated Complaint: CHEST PAIN Time Seen by Provider: 09/11/19 11:03 Primary Care Provider: [facility] [Primary Care Provider] - Follow up as needed Mode of Arrival: Ambulatory TRAVEL OUTSIDE OF THE [place] IN LAST 30 DAYS: No - HPI Notes: Patient is a 54-year-old female with no significant past medical history who presents complaining of a problem bilateral chest pain worse in the left and hellen n in her back that she experienced once on Monday and then again when she was driving to [place] today. Patient states that the pain is worsened when she is moving her arms and pressing on her chest pain patient states that she did have a cough last night and got green sputum up and then an occasional cough today, but has not been constant. She has been eating and drinking without difficulty. She is urinating normally and having normal bowel movements. Denies any prolonged immobilization, distance travel, recent surgery/trauma, personal cancer history, hormone use, smoking, or previous DVT/PE. Denies any headache, fever, neck pain, URI, sore throat, palpitations, syncope, shortness of breath, wheeze, dyspnea, abdominal pain, nausea/vomiting/diarrhea, urinary retention, dysuria, hematuria, or rash. - Related Data Allergies/Adverse Reactions: Penicillins Allergy (Verified 04/21/19 15:25) Past Medical History - General Information source: Patient - Social History Smoking Status: Former Smoker Chew tobacco use (# tins/day): No Frequency of alcohol use: Social Drug Abuse: None Family History: Reviewed & Not Pertinent Patient has suicidal ideation: No Patient has homicidal ideation: No Pulmonary Medical History: Reports: Hx Asthma, Hx COPD Renal/ Medical History: Denies: Hx Peritoneal Dialysis Past Surgical History: Reports: Hx Hysterectomy Review of Systems - Review of Systems -: Yes All other systems reviewed and negative Physical Exam - Notes Notes: PHYSICAL EXAMINATION: GENERAL: Well-appearing, well-nourished and in no acute distress. HEAD: Atraumatic, normocephalic. EYES: Pupils equal round and reactive to light, extraocular movements intact, sclera anicteric, conjunctiva are normal. ENT: Nares patent and without discharge. oropharynx clear without exudates. No tonsilar hypertrophy or erythema. Moist mucous membranes. NECK: Normal range of motion, supple without lymphadenopathy Chest: + reproducible tenderness to palpation of the sternal and left chest area and reproducible with arm extension/abduction. LUNGS: Breath sounds clear to auscultation bilaterally and equal. No wheezes rales or rhonchi. HEART: Regular rate and rhythm without murmurs, rubs, gallops. ABDOMEN: Soft, nontender, nondistended abdomen. No guarding, no rebound. Normal bowel sounds present. No CVA tenderness bilaterally. Musculoskeletal: FROM to passive/active. Strength 5+/5. Koko neg. No asymmetry to LE's. Extremities: No cyanosis, clubbing, or edema b/l. Peripheral pulses 2+. Capillary refill less than 3 seconds. NEUROLOGICAL: Normal speech, normal gait. PSYCH: Normal mood, normal affect. SKIN: Warm, Dry, normal turgor, no rashes or lesions noted. Course - Re-evaluation Re-evalutation: 09/11/19 14:[address] Kraft. We will proceed with CTA to further evaluate. 09/11/19 16:44 Patient is an afebrile, well-hydrated 54-year-old female who presents to the ED with chest wall pain. Vitals are acceptable without any significant tachycardia, tachypnea, or hypoxia. PE is otherwise unremarkable aside from the reproducible chest wall tenderness. Patient is nontoxic-appearing and is tolerating p.o. without any difficulties. CBC, CMP, EKG/cardiac enzymes 2, chest x-ray, CTA chest are all unremarkable for any acute pathology. Patient has a heart score of 2, Wells score of 0. Patient does not have any dyspnea or shortness of breath. Patient's presentation and symptomatology creates low suspicion for ACS, PE, pneumothorax, pericarditis, dissection, respiratory compromise, severe dehydration, sepsis, meningitis, or other systemic emergent condition at this time. Patient is aware that this condition can change from initial presentation and she needs to monitor symptoms closely and seek medical attention for any acute changes. Pt is feeling better and would like to go home. Recommend conservative measures for symptoms. Recheck with your PCM in 2-3 days. Consider consult with Cardiology. Return to the ED with any worsening/concerning symptoms otherwise as reviewed in discharge. Patient is in agreement. - Laboratory Result Diagrams: 09/11/19 11:15 09/11/19 11:15 Laboratory results interpreted by me: 09/11/19 09/11/19 11:15 11:15 WBC 12.7 H Absolute Neuts (auto) 9.6 H Potassium 5.2 H Carbon Dioxide 34 H Glucose 114 H Discharge - Discharge Clinical Impression: Chest wall pain Condition: Stable Disposition: HOME, SELF-CARE Instructions: Chest Wall Pain ([facility]) Additional Instructions: Maintain adequate fluid and food intake Take home medications as directed healthy diet Monitor blood pressure daily and keep a log Monitor symptoms for any acute changes Recheck with your PCM in 2-3 days Consider a follow-up with cardiology Return to the ED with any worsening symptoms and/or development of fever, headache, chest pain, palpitations, syncope, shortness of breath, trouble breathing, abdominal pain, n/v/d, blood in stool/urine, loss of control of bowel/bladder, urinary retention, muscle weakness/paralysis, numbness/tingling, or other worsening symptoms that are concerning to you. Forms: Elevated Blood Pressure Referrals: [facility] [Primary Care Provider] - Follow up as needed ROZINA COURTNEY MD [ACTIVE STAFF] - Follow up as needed
--- NOTE | 2019-09-11 16:25 | RADIOLOGY REPORT (SQ) ---
EXAM DESCRIPTION: CTA CHEST COMPLETED DATE/TIME: 09/11/2019 3:56 pm REASON FOR STUDY: cp, eval linear opacity Rt base COMPARISON: Same date radiograph TECHNIQUE: CT scan of the chest performed using helical scanning technique with dynamic intravenous contrast injection. Images reviewed with lung, soft tissue and bone windows. Reconstructed coronal and sagittal MPR images reviewed. Additional 3 dimensional post-processing performed to develop Maximal Intensity Projection images (LA P). All images stored on PACS. All CT scanners at this facility use dose modulation, iterative reconstruction, and/or weight based d osing when appropriate to reduce radiation dose to as low as reasonably achievable (ALARA). [facility]: Dose Right [facility]: CareDose [facility]: Dose Right [facility]: Teradose 4D [facility]: Moleculin CONTRAST TYPE AND DOSE: contrast/concentration: Isovue 350.00 mg/ml; Total Contrast Delivered: 75.0 ml; Total Saline Delivered: 69.0 ml Contrast bolus adequate for pulmonary arteries and aorta. RENAL FUNCTION: None required. The patient is less than 50 years old. RADIATION DOSE: CT Rad equipment meets quality standard of care and radiation dose reduction techniq ues were employed. CTDIvol: 19.8 - 25.5 mGy. DLP: 977 mGy-cm. . LIMITATIONS: None. FINDINGS: LUNGS AND PLEURA: Mild linear opacity within the right middle lobe likely atelectasis or s carring. No other airspace disease, pleural effusion or pneumothorax. No suspicious nodules or mass es. No pleural calcifications. AORTA AND GREAT VESSELS: No aneurysm. No dissection. HEART: No pericardial effusion. No significant coronary artery calcifications. PULMONARY ARTERIES: No emboli visualized in the main pulmonary arteries or the segmental branches. HILAR AND MEDIASTINAL STRUCTURES: No identified masses or abnormal nodes. HARDWARE: None in the chest. UPPER ABDOMEN: No significant findings. Limited exam. THYROID AND OTHER SOFT TISSUES: No masses. No adenopathy. BONES: No acute or significant finding. 3D MIPS: Confirm above findings. OTHER: No other significant finding. IMPRESSION: 1. No evidence of pulmonary embolus or other acute intrathoracic process. 2. Minimal linear opacity within the right lung base compatible with atelectasis/scarring. COMMENT: Quality ID # [id number]: Final reports with documentation of one or more dose reduction techniques (e.g., Automated exposure control, adjustment of the mA and/or kV according to patient size, use of iterative reconstruction technique) TECHNICAL DOCUMENTATION: JOB ID: [id number] [employer]- All Rights Reserved Reading location - IP/workstation name: [email or web address]
[2019-09-11 17:01] VITALS: BP 121/60
== END 2019-09-11 17:01 | disposition home or self-care (01) ==
LOC: ER 10:25
DX: R07.89 Other chest pain (principal); M54.9 Dorsalgia, unspecified; R05 Cough; J44.9 Chronic obstructive pulmonary disease, unspecified; Z87.891 Personal history of nicotine dependence; Z88.0 Allergy status to penicillin
CPT/HCPCS: 36415; 71046; 71275; 80053; 82550; 82553; 84484; 85025; 93005; 93010; 99285

== ENCOUNTER 2019-12-26 11:52 | Emergency (ER) | payer SELFPAY ==
[2019-12-26] MEDS ORDERED: DEXAMETHASONE SOD PHOS INJ 10 MG/1 ML VIAL IM ONE (12:03)
--- NOTE | 2019-12-26 12:04 | ER Document Report ---
HPI - HPI Time Seen by Provider: 12/26/19 11:59 Pain Level: 3 Notes: Patient is a 54-year-old female with no severe past medical history presents complaining of nasal congestion/discharge, postnasal drip, sore throat, dry cough that began yesterday morning. Patient states that usually steroid injection works well for her when she develops the symptoms. She would also like tested for strep. She has been able to eat and drink without difficulty otherwise. She is urinating normally and having normal bowel movements. No other concerns or complaints. Denies any headache, fever, neck pain, chest pain, palpitations, syncope, shortness of breath, wheeze, dyspnea, abdominal pain, nausea/vomiting/diarrhea, urinary retention, dysuria, hematuria, or rash. - ROS Systems Reviewed and Negative: Yes All other systems reviewed and negative - REPRODUCTIVE Reproductive: DENIES: : Past Medical History - Social History Smoking Status: Never Smoker Frequency of alcohol use: Occasional Drug Abuse: None Family History: Reviewed & Not Pertinent Patient has suicidal ideation: No Patient has homicidal ideation: No Pulmonary Medical History: Reports: Hx Asthma, Hx COPD Renal/ Medical History: Denies: Hx Peritoneal Dialysis Past Surgical History: Reports: Hx Hysterectomy Vertical Provider Document - CONSTITUTIONAL Agree With Documented VS: Yes Notes: PHYSICAL EXAMINATION: GENERAL: Well-appearing, well-nourished and in no acute distress. A&Ox4. Answers questions appropriately. Moves comfortably w/o notable distress HEAD: Atraumatic, normocephalic. EYES: Pupils equal round and reactive to light, extraocular movements intact, sclera anicteric, conjunctiva are normal. ENT: Nares patent and with clear discharge. oropharynx mild erythema without exudates. 2+ tonsilar hypertrophy with mild erythema no exudate. No palatine shift. Uvula midline. No tongue protrusion. No drooling, hoarseness, or airway compromise. Moist mucous membranes. No sinus tenderness. NECK: Normal range of motion, supple without lymphadenopathy. No rigidity/meningismus. LUNGS: Breath sounds clear to auscultation bilaterally and equal. No wheezes rales or rhonchi. No retractions HEART: Regular rate and rhythm without murmurs, rubs, gallops. ABDOMEN: Soft, nontender, nondistended abdomen. No guarding, no rebound. Normal bowel sounds present. No CVA tenderness bilaterally. NEUROLOGICAL: Normal speech, normal gait. PSYCH: Normal mood, normal affect. SKIN: Warm, Dry, normal turgor, no rashes or lesions noted. - INFECTION CONTROL TRAVEL OUTSIDE OF THE [place] IN LAST 30 DAYS: No Course - Re-evaluation Re-evalutation: 12/26/19 Patient is an afebrile, well-hydrated, 54-year-old female who presents to the emergency department with an acute URI/pharyngitis, suspect viral. Vitals are acceptable without significant tachycardia, tachypnea, or hypoxia. PE is otherwise unremarkable. He is nontoxic-appearing and is tolerating p.o. without difficulty. Lungs are clear to auscultation bilaterally. Rapid strep was negative with a throat culture pending. Decadron given IM. No further labs or imaging warranted at this time. Low suspicion for any meningitis, sepsis, peritonsillar/pharyngeal abscess, respiratory compromise, Sammy's, or other emergent systemic condition at this time. Patient is aware this condition can change from initial presentation and he needs to monitor symptoms closely. Conservative measures otherwise for symptoms. Recheck with your PCM in 3-5 days. Return to the ED with any worsening/concerning symptoms otherwise as reviewed in discharge. Patient is in agreement. - Vital Signs Vital signs: Temp Pulse Resp BP Pulse Ox 98.0 F 92 18 174/82 H 95 12/26/19 11:57 12/26/19 11:57 12/26/19 11:57 12/26/19 11:57 12/26/19 11:57 Discharge - Discharge Clinical Impression: Acute URI, Sore throat Condition: Stable Disposition: HOME, SELF-CARE Instructions: Sore Throat ([facility]), Upper Respiratory Illness ([facility]) Additional Instructions: Maintain adequate fluid intake Take meds as directed Salt water gargles, throat sprays, mouthwash rinse, peroxide gargles tylenol/ibuprofen as needed over the counter cold medication as needed for symptoms F/u: with your PCM in 3-5 days for a recheck Consider consult with ENT for ongoing/worsening symptoms Return to the ED with any fever, worsening pain, chest pain, neck pain/stiffness, shortness of breath, cough, drooling, trouble swallowing/breathing, abdominal pain, n/v/d, rash, or worsening/concerning symptoms otherwise. Forms: Elevated Blood Pressure Referrals: [facility] [Primary Care Provider] - Follow up in 3-5 days
[2019-12-26 13:13] VITALS: BP 149/77
== END 2019-12-26 13:12 | disposition home or self-care (01) ==
LOC: ER 11:52
DX: J06.9 Acute upper respiratory infection, unspecified (principal); J02.9 Acute pharyngitis, unspecified; J35.1 Hypertrophy of tonsils; R09.81 Nasal congestion; R09.82 Postnasal drip; R05 Cough; J44.9 Chronic obstructive pulmonary disease, unspecified
CPT/HCPCS: 87070; 87880; J1100

== ENCOUNTER 2020-03-26 10:36 | Emergency (ER) | payer OTHER ==
[2020-03-26 10:50] VITALS: BP 138/67
[2020-03-26] MEDS ORDERED: DEXAMETHASONE SOD PHOS INJ 10 MG/1 ML VIAL IM ONE (10:54)
--- NOTE | 2020-03-26 11:01 | ER Document Report ---
HPI - HPI Time Seen by Provider: 03/26/20 10:50 Pain Level: Denies Context: CHIEF COMPLAINT: Shortness of breath since last night HPI: 55-year-old female with asthma history presenting to the emergency department complaining of shortness of breath and tightness in the chest since last night. Patient was exposed to bleach at work and began having coughing and wheezing after this. Does have an inhaler and a nebulizer that she uses at home intermittently. Did use her inhaler immediately and her nebulizer last night. States she also had to 10 mg prednisone that she took last night. States that after taking the steroids and using the inhalers she did start to feel like her breathing improved significantly and the tightness in the chest resolved for the most part last night. Still with slight discomfort with breathing today, has not used her inhaler today. No fever. No recent exposure to a positive COVID- 19 patient, no travel outside of the [facility]. ROS: See HPI - all other systems were reviewed and are otherwise negative Constitutional: no fever Eyes: no drainage, no blurred vision ENT: no runny nose, no sore throat Cardiovascular: Positive chest tightness Resp: Positive SOB, positive cough GI: no vomiting, no diarrhea, no abdominal pain : no dysuria Integumentary: no rash Allergy: no hives Musculoskeletal: no extremity pain or swelling Neurological: no numbness/tingling, no weakness MEDICATIONS: I agree with the patient medications as charted by the RN. ALLERGIES: I agree with the allergies as charted by the RN. PAST MEDICAL HISTORY/PAST SURGICAL HISTORY: Reviewed and agree as charted by RN. SOCIAL HISTORY: Reviewed and agree as charted by RN. FAMILY HISTORY: No significant familial comorbid conditions directly related to patient complaint EXAM: Reviewed vital signs as charted by RN. CONSTITUTIONAL: Alert and oriented and responds appropriately to questions. Well-appearing; well-nourished HEAD: Normocephalic; atraumatic EYES: PERRL; Conjunctivae clear, sclerae non-icteric ENT: normal nose; no rhinorrhea; moist mucous membranes; pharynx without lesions noted, no uvula edema or deviation, no tonsillar hypertrophy, phonation normal NECK: Supple without meningismus; non-tender; no cervical lymphadenopathy, no masses CARD: RRR; no murmurs, no clicks, no rubs, no gallops; symmetric distal pulses RESP: Normal chest excursion without splinting or tachypnea; breath sounds clear and equal bilaterally; no wheezes, no rhonchi, no rales, pulse oximetry 93% on room air mild hypoxia. No dyspnea with speaking ABD/GI: Normal bowel sounds; non-distended; soft, non-tender, no rebound, no guarding; no palpable organomegaly or masses. BACK: The back appears normal and is non-tender to palpation, there is no CVA tenderness EXT: Normal ROM in all joints; non-tender to palpation; no cyanosis, no effusions, no edema SKIN: Normal color for age and race; warm; dry; good turgor; no acute lesions noted NEURO: Moves all extremities equally; Motor and sensory function intact PSYCH: The patient's mood and manner are appropriate. Grooming and personal hygiene are appropriate. MDM: 55-year-old female presenting for likely asthma attacks triggered by exposure to bleach last night at work. I spoke with the patient at length. She was very mildly hypoxic although her pulse oximetry improved to 96% on recheck. Patient has no active wheezing at this time. She does request refill of the albuterol for her nebulizer. She is requesting steroids as she states that she feels much better today after taking the steroids last night and believes this will help with her symptoms. I did speak with the patient about possible cardiac origin. I did offer further testing to include cardiac labs, chest x- ray, EKG, breathing treatment and patient declines all of these options at this time. She believes that it is her asthma that was touched off by the exposure to bleach last night and she would like a shot of steroids and discharge at this time. She is aware that she may return at any time if she wishes to have the symptoms readdressed with further work-up or if she becomes more short of breath. She will otherwise be given a referral to a primary care provider for further work-up and evaluation. Patient verbalizes understanding of this. - RESPIRATORY Respiratory: REPORTS: Trouble Breathing, Coughing - REPRODUCTIVE Reproductive: DENIES: : Past Medical History - Social History Smoking Status: Former Smoker Chew tobacco use (# tins/day): No Frequency of alcohol use: Occasional Drug Abuse: None Family History: Reviewed & Not Pertinent Patient has homicidal ideation: No Pulmonary Medical History: Reports: Hx Asthma, Hx COPD Renal/ Medical History: Denies: Hx Peritoneal Dialysis Past Surgical History: Reports: Hx Hysterectomy Vertical Provider Document - INFECTION CONTROL TRAVEL OUTSIDE OF THE [place] IN LAST 30 DAYS: No Course - Vital Signs Vital signs: Temp Pulse Resp BP Pulse Ox 97.9 F 83 16 138/67 H 93 03/26/20 10:45 03/26/20 10:42 03/26/20 10:42 03/26/20 10:42 03/26/20 10:42 Discharge - Discharge Clinical Impression: Dyspnea Qualifiers: Dyspnea type: shortness of breath Qualified Code(s): R06.02 - Shortness of breath; R06.00 - Dyspnea, unspecified; R06.01 - Orthopnea Condition: Stable Disposition: HOME, SELF-CARE Additional Instructions: Continue to use your nebulizer or your albuterol MDI 2 puffs or 1 treatment every 4 hours for shortness of breath. You declined further work-up at this time, if you develop worsening tightness in the chest, shortness of breath or have other concerns please return for reevaluation of your symptoms Prescriptions: Prednisone [Deltasone 20 mg Tablet] 2 tab PO DAILY 5 Days #10 tablet Albuterol Sulfate [Ventolin 0.083% Neb 2.5 mg/3 mL Ampul] 2.5 mg NEB Q4H PRN #1 pkg PRN Reason: Referrals: [facility] [NO LOCAL MD] - Follow up as needed
== END 2020-03-26 11:03 | disposition home or self-care (01) ==
LOC: ER 10:36
DX: J44.9 Chronic obstructive pulmonary disease, unspecified (principal); R06.01 Orthopnea; R06.02 Shortness of breath; R07.89 Other chest pain; R05 Cough; Z77.098 Contact with and (suspected) exposure to other hazardous, chiefly nonmedicinal, chemicals; Z79.899 Other long term (current) drug therapy; Z87.891 Personal history of nicotine dependence
CPT/HCPCS: 99284; 96372; J1100

== ENCOUNTER 2020-05-22 12:14 | Emergency (ER) | payer OTHER ==
[2020-05-22 12:34] VITALS: BP 185/80
--- NOTE | 2020-05-22 12:37 | ER Document Report ---
HPI - HPI Patient complains to provider of: Eyelid tenderness Time Seen by Provider: 05/22/20 12:32 Onset: Yesterday Onset/Duration: Gradual Severity: Mild Associated Symptoms: None Exacerbated by: Denies Relieved by: Denies - REPRODUCTIVE Reproductive: DENIES: : Past Medical History - General Information source: Patient - Social History Smoking Status: Never Smoker Cigarette use (# per day): No Chew tobacco use (# tins/day): No Smoking Education Provided: No Family History: Reviewed & Not Pertinent Pulmonary Medical History: Reports: Hx Asthma, Hx COPD Renal/ Medical History: Denies: Hx Peritoneal Dialysis Past Surgical History: Reports: Hx Hysterectomy Vertical Provider Document - CONSTITUTIONAL Agree With Documented VS: Yes - INFECTION CONTROL TRAVEL OUTSIDE OF THE [place] IN LAST 30 DAYS: No - HEENT HEENT: Atraumatic, Conjuctival Injection, Normocephalic, PERRLA Notes: Positive PND for about 14 days. Sinus tenderness Tooth tenderness - NECK Neck: Normal Inspection - RESPIRATORY Respiratory: Breath Sounds Normal, No Respiratory Distress - CARDIOVASCULAR Cardiovascular: Regular Rate - GI/ABDOMEN Gastrointestinal: Abdomen Soft, Abdomen Non-Tender - BACK Back: Normal Inspection - MUSCULOSKELETAL/EXTREMETIES Musculoskeletal/Extremeties: MAEW - NEURO Level of Consciousness: Awake, Alert Discharge - Discharge Clinical Impression: Hordeolum externum (stye) Qualifiers: Laterality: right Eyelid: unspecified eyelid Qualified Code(s): H00.013 - Hordeolum externum right eye, unspecified eyelid Sinusitis Qualifiers: Sinusitis location: maxillary Chronicity: acute Recurrence: not specified as recurrent Qualified Code(s): J01.00 - Acute maxillary sinusitis, unspecified Condition: Good Disposition: HOME, SELF-CARE Instructions: Antibiotic Therapy ([facility]) Additional Instructions: Warm compresses to affected area 4-5 times a day use dandruff shampoo to cleanse the eyelash area. Return to the ER for any change worsening condition. Follow-up PMD in 2 to 3 days. Prescriptions: Sulfamethoxazole/Trimethoprim [Septra-Ds 800-160 mg Tablet] 1 tab PO BID #20 tablet
== END 2020-05-22 12:33 | disposition home or self-care (01) ==
LOC: ER 12:14
DX: H00.013 Hordeolum externum right eye, unspecified eyelid (principal); J01.00 Acute maxillary sinusitis, unspecified
CPT/HCPCS: 99283

== ENCOUNTER → 2020-08-27 | Outpatient (CLI) | payer BC ==
--- NOTE | 2020-08-27 16:11 | WOMENS IMAGING REPORT ---
EXAM DESCRIPTION: JO-ANN PITTS 3D BILAT SCREEN IMAGES COMPLETED DATE/TIME: 08/27/2020 3:53 pm REASON FOR STUDY: Z12.31 ENCOUNTER FOR SCREENING MAMMOGRAM FOR MALIGNANT NEOPLASM OF BREAST Z12.31 ENCNTR SCREEN MAMMOGRAM FOR MALIGNANT NEOPLASM OF SUHAIL COMPARISON: None. EXAM PARAMETERS: Views: Standard craniocaudal and mediolateral oblique views of each breast recorded using digital acquisition and breast tomosynthesis. Read with the assistance of CAD. .[facility] - R2 Corporate Director Version 9.2 LIMITATIONS: None. FINDINGS: No suspicious masses, suspicious calcifications or architectural distortion. No areas of c oncern. IMPRESSION: NEGATIVE MAMMOGRAM. BIRADS 1. BREAST DENSITY: a. The breasts are almost entirely fatty. BIRAD: ASSESSMENT: 1 NEGATIVE RECOMMENDATION: ROUTINE SCREENING COMMENT: The patient has been notified of the results by letter per MQSA requirements. Additional no tification policies are in place for contacting patient with suspicious or incomplete findings. Quality ID #[id number]: The [employer] recommends an annual screening mammogram for women aged 40 years or over. This facility utilizes a reminder system to ensure that all patients receive reminder letters, and/or direct phone calls for appointments. This includes reminders for routine scr eening mammograms, diagnostic mammograms, or other Breast Imaging Interventions when appropriate. Th is patient will be placed in the appropriate reminder system. TECHNICAL DOCUMENTATION: FINDING NUMBER: (1) ASSESSMENT: (1) JOB ID: [id number] 2010 [employer]- All Rights Reserved Reading location - IP/workstation name: [email or web address]
== END ==
LOC: WI 14:58
PROVIDERS: ATTEND Nurse Practitioner Family
DX: Z12.31 Encounter for screening mammogram for malignant neoplasm of breast (principal); Z80.3 Family history of malignant neoplasm of breast
CPT/HCPCS: 77063

== ENCOUNTER 2020-11-08 12:53 | Emergency (ER) | payer SELFPAY ==
--- NOTE | 2020-11-08 13:49 | ER Document Report ---
ED Medical Screen (RME) - General Chief Complaint: Cough Stated Complaint: COUGH,NO TASTE/SMELL,HEADACHE Time Seen by Provider: 11/08/20 13:46 Primary Care Provider: TEE SANCHZE ARNP [Primary Care Provider] - Follow up as needed Mode of Arrival: Ambulatory Information source: Patient Notes: HPI; 55-year-old female presents to the emergency room general body aches, subjective fever, cough with loss of taste and smell for the past 2 days. Positive Covid exposure approximately 2 weeks ago. No previous Covid testing. PE: Alert and oriented x3. Lungs expiratory wheezes no rales no rhonchi. Heart: Regular rate rhythm without murmurs, rubs, gallops. I have greeted and performed a rapid initial assessment of this patient. A comprehensive ED assessment and evaluation of the patient, analysis of test results and completion of the medical decision making process will be conducted by additional ED providers. I have specifically instructed the patient or f amily members with the patient to immediately return to any nursing staff should anything change in the patient's condition or with their chief complaint. TRAVEL OUTSIDE OF THE [place] IN LAST 30 DAYS: No - Related Data Allergies/Adverse Reactions: Penicillins Allergy (Verified 03/26/20 10:52) Past Medical History Pulmonary Medical History: Reports: Hx Asthma, Hx COPD Renal/ Medical History: Denies: Hx Peritoneal Dialysis Past Surgical History: Reports: Hx Hysterectomy Physical Exam - Vital signs Vitals: Temp Pulse Resp BP Pulse Ox 97.6 F 93 16 150/75 H 92 11/08/20 12:58 11/08/20 12:58 11/08/20 12:58 11/08/20 12:58 11/08/20 12:58 Course - Vital Signs Vital signs: Temp Pulse Resp BP Pulse Ox 97.6 F 93 16 150/75 H 92 11/08/20 12:58 11/08/20 12:58 11/08/20 12:58 11/08/20 12:58 11/08/20 12:58 Doctor's Discharge - Discharge Referrals: TEE SANCHEZ ARNP [Primary Care Provider] - Follow up as needed
[2020-11-08] MEDS ORDERED: METHYLPREDNISOLONE INJ 125 MG/2 ML SDV IM ONE ×2 (13:53→17:57)
--- NOTE | 2020-11-08 15:57 | RADIOLOGY REPORT (SQ) ---
EXAM DESCRIPTION: CHEST SINGLE VIEW IMAGES COMPLETED DATE/TIME: 11/08/2020 2:29 pm REASON FOR STUDY: cough COMPARISON: 06/14/2019 EXAM PARAMETERS: NUMBER OF VIEWS: One view. TECHNIQUE: Single frontal radiographic view of the chest acquired. RADIATION DOSE: NA LIMITATIONS: None. FINDINGS: LUNGS AND PLEURA: No opacities, masses or pneumothorax. No pleural effusion. MEDIASTINUM AND HILAR STRUCTURES: No masses. Contour normal. HEART AND VASCULAR STRUCTURES: Heart normal in size. Normal vasculature. BONES: No acute findings. HARDWARE: None in the chest. OTHER: No other significant finding. IMPRESSION: NO ACUTE RADIOGRAPHIC FINDING IN THE CHEST. TECHNICAL DOCUMENTATION: JOB ID: [id number] 2010 [employer]- All Rights Reserved Reading location - IP/workstation name: [email or web address]
--- NOTE | 2020-11-08 18:07 | ER Document Report ---
HPI - HPI Patient complains to provider of: COVID 19 Time Seen by Provider: 11/08/20 13:46 Context: 55-year-old female past medical history significant for COPD and asthma presents to the emergency room complaining of general body aches cough subjective fever with loss of taste and smell for the past 2 days. Patient with a positive Covid exposure about 10 days ago. Has not been tested for Covid Associated Symptoms: None Exacerbated by: Denies Relieved by: Denies Similar symptoms previously: No Recently seen / treated by doctor: No - ROS Systems Reviewed and Negative: Yes All other systems reviewed and negative - CONSTITUTIONAL Constitutional: REPORTS: Fever - EENT EENT: DENIES: Sore Throat - NEURO Neurology: DENIES: Headache, Weakness - RESPIRATORY Respiratory: REPORTS: Coughing. DENIES: Trouble Breathing - REPRODUCTIVE Reproductive: DENIES: : - DERM Skin Color: Normal Skin Problems: None Past Medical History - General Information source: Patient - Social History Smoking Status: Former Smoker Frequency of alcohol use: Rare Drug Abuse: None Family History: Reviewed & Not Pertinent Pulmonary Medical History: Reports: Hx Asthma, Hx COPD Renal/ Medical History: Denies: Hx Peritoneal Dialysis Past Surgical History: Reports: Hx Hysterectomy Vertical Provider Document - CONSTITUTIONAL Agree With Documented VS: Yes Exam Limitations: No Limitations General Appearance: Mild Distress - INFECTION CONTROL TRAVEL OUTSIDE OF THE [place] IN LAST 30 DAYS: No - HEENT HEENT: Atraumatic, Normocephalic - NECK Neck: Normal Inspection, Supple, Thyroid Normal - RESPIRATORY Respiratory: No Respiratory Distress, Chest Non-Tender, Wheezing. negative: Rales, Rhonchi - CARDIOVASCULAR Cardiovascular: Regular Rate, Regular Rhythm, No Murmur - BACK Back: Normal Inspection - MUSCULOSKELETAL/EXTREMETIES Musculoskeletal/Extremeties: FROM - NEURO Level of Consciousness: Awake, Alert, Appropriate Motor/Sensory: No Motor Deficit, No Sensory Deficit - DERM Integumentary: Warm, Dry, No Rash Course - Re-evaluation Re-evalutation: 11/08/20 18:02 Reviewed x-ray results with patient. Patient is aware of the need to self quarantine for 14 days or until she gets a negative COVID-19 test. IM Solu- Medrol given in the ER. Aware to start the prednisone tomorrow. Continue with her home asthma medications. Patient requested narcotic cough medicine. E force was reviewed. Okay for prescription. Outpatient follow-up with her primary care physician if not improving in 2 to 3 days. Patient was given strict return to the emergency room guidelines. Return for any new or worsening symptoms. All questions were answered. Patient verbalized understanding and agrees with plan of care. 11/08/20 18:10 11/08/20 18:48 - Vital Signs Vital signs: Temp Pulse Resp BP Pulse Ox 97.6 F 93 16 150/75 H 92 11/08/20 12:58 11/08/20 12:58 11/08/20 12:58 11/08/20 12:58 11/08/20 12:58 - Laboratory Results Critical Laboratory Results Reviewed: No Critical Results - Radiology Results Critical Radiology Results Reviewed: No Critical Results Discharge - Discharge Clinical Impression: Exposure to COVID-19 virus Asthma exacerbation Qualifiers: Asthma severity: moderate Asthma persistence: persistent Qualified Code(s): J45.41 - Moderate persistent asthma with (acute) exacerbation Condition: Stable Disposition: HOME, SELF-CARE Instructions: COVID-19 Guidance for Persons Under Investigation, Asthma ([facility]) Additional Instructions: You are required to self quarantine for 14 days or until you get a negative Covid test. Start the prednisone tomorrow. Guaifenesin with codeine as prescribed. Follow-up with your primary care physician if not improving in 2 to 3 days. Return to the emergency room for any new or worsening symptoms. Prescriptions: Prednisone [Deltasone 20 mg Tablet] See Protocol PO DAILY 9 Days #18 tablet Codeine Phosphate/Guaifenesin [Guaifenesin-Codeine Syrup] 10 ml PO Q6H PRN #120 ml PRN Reason: Cough Forms: Return to Work Referrals: TEE SANCHEZ ARNP [NO LOCAL MD] - Follow up as needed
[2020-11-08 18:31] VITALS: BP 141/71
== END 2020-11-08 18:24 | disposition home or self-care (01) ==
LOC: ER 12:53
DX: U07.1 COVID-19 (principal); J44.1 Chronic obstructive pulmonary disease with (acute) exacerbation; J45.41 Moderate persistent asthma with (acute) exacerbation; M79.10 Myalgia, unspecified site; R50.9 Fever, unspecified; R43.8 Other disturbances of smell and taste; R05 Cough; Z87.891 Personal history of nicotine dependence
CPT/HCPCS: 99284; 96372; 87635; 71045; J2930; C9803